=== PATIENT | female | born 1955 | race Caucasian/White ===

== ENCOUNTER 2019-03-03 09:17 | Day surgery (SDC) | payer BC, SELFPAY ==
[2019-02-17 13:11] VITALS: BMI 34.9
--- NOTE | 2019-02-27 12:14 | HP_ITS ---
Intake Vital Signs 02/17/19 Body Mass Index (BMI) 34.9 02/17/19 Height 5 ft 6.5 in 02/17/19 Weight: 233 lb 02/17/19 Body Mass Index (BMI) 37.0 02/17/19 Blood Pressure 152/84 H 02/17/19 Blood Pressure Location Rt brachial 02/17/19 Blood Pressure Position Sitting 02/17/19 Respiratory Rate 16 Intake Visit Reasons: C-SCOPE/EGD CONSULT Overcoiler Required: No Is patient in pain?: No Allergies ranitidine Allergy (Mild, Verified 02/17/19 13:09) Other adhesive Allergy (Verified 02/17/19 13:08) Rash Medications Calcium Carbonate/Vitamin D3 [Calcium 600 + Vit D3 Caplet] 1 ea PO DAILY 01/22/17 [History Confirmed 02/17/19] Fluticasone 0.05% [Flonase Nasal [place]] 1 spray NASAL DAILY 01/22/17 [History Confirmed 02/17/19] Omeprazole [Prilosec] 20 mg PO DAILY 01/22/17 [History Confirmed 02/17/19] fluticasone propionate 50 mcg/actuation nasal spray,suspension 1 spray INTRANASAL DAILY 02/17/19 [History Confirmed 02/17/19] PFSH Medical History Allergies (Acute) Bartholin cyst (Acute) GERD (gastroesophageal reflux disease) (Acute) Surgical History Cyst of Bartholin's gland (Acute) S/P laparoscopic cholecystectomy (Acute) S/P wisdom tooth extraction (Acute) Family History Mother Heart disease Hypertension CAD (coronary artery disease) CVA (cerebral vascular accident) Grandmother Breast cancer Diabetes Father Heart disease Social History (Updated 02/27/19 @ 12:14 by Paramjit Wesley MD) Smoking Status: Former smoker alcohol intake: current alcohol intake frequency: a few times a week HPI HPI HPI: GHANSHYAM NANCE, is a 63 F who presents to the office today for HPI HPI Surgical H&P: Yes HPI: GHANSHYAM NANCE, is a 63 F who presents to the office today for Evaluation for endoscopy. Patient has been having some epigastric discomfort and some chest discomfort she has a known history of GERD but she is never had an EGD. She is not experiencing any vomiting but she has been experiencing some nausea. In addition she has had some left-sided pain and is actually due for a screening colonoscopy. She does have a mother with a history of ulcerative colitis. ROS General General: No weight change, appetite, fatigue, colon cancer, breast cancer or weakness HEENT HEENT: No difficulty swallowing, eye injury, eye surgery, swollen glands or hoarseness Endo Endocrine: No thyroid disease, diabetes mellitus, thyroid cancer, Hair loss, heat intolerance or cold intolerance Skin Skin: No rash or changing moles Breast Breast: No left breast lump, right breast lump, nipple discharge, breast pain, abnormal mammogram, abnormal US or breast enlargement Musc Musculoskeletal: Yes back problems and arthritis; no rheumatoid arthritis, gout or joint pain Cardio Cardiovascular: No murmur, pacemaker, heart disease, atrial fibrillation, high blood pressure, heart attack, heart stent, palpitations, shortness of breat with exertion or chest pain Psych Psychiatric: No depression, anxiety or hearing voices Resp Respiratory: No shortness of breath, Yes sleep apnea, No cough, No COPD, No asthma, No emphysema, No wheezing Gastro Gastrointestinal: Yes abdominal pain, No nausea or vomiting, Yes diarrhea, No constipation, No blood in stool, Yes acid reflux, No hemorrhoids, No ulcers, No gallbladder problem, No black,tarry stools Fernando Hematologic: No blood thinners, No blood disorders, No bleeding, No anemia, No blood clots Neuro Neurologic: No system reviewed and no additional complaints, except as docu, No as per HPI, No abnormal walking, No abnormal hearing, No abnormal movements, No abnormal speech, No behavioral changes, No burning sensations, No confusion, No seizure-like activity, No unsteadiness, No dizziness, No localized weakness, No frequent falls, No headache(s), No lack of coordination, No loss of vision, No memory loss, No numbness, No other visual disturbances, No radiating pain, No restless legs, No sensory deficit, No fainting, No tingling, No tremor(s), No weakness, No other Exam Const General: no acute distress, well developed, well hydrated Orientation: oriented to person, oriented to place, oriented to time [facility] Head: normocephalic, atraumatic Ears: external ears normal Mouth: moist mucous membranes Eyes Sclera: sclerae normal Pupils: normal by confrontation Neck Neck: no lymphadenopathy noted Neck mass: No Thyroid: thyroid normal, symmetrical Chest Chest palpation & inspection: normal inspection of the chest Breast Palpation: No nipple discharge Resp Effort & Inspection: normal respiratory effort Auscultation: clear to auscultation bilaterally Percussion: percussion normal Cardio Rate: regular rate Rhythm: regular rhythm Heart Sounds: no murmurs GI Palpation: soft, no hepatosplenomegaly, no masses, nontender Rectal Exam: other Other: Rectal exam deferred. Extrem General: normal to inspection, no clubbing, cyanosis or edema Assessment & Plan Problems 1. Gastroesophageal reflux disease, esophagitis presence not specified K21.9 2. Epigastric pain R10.13 3. Encounter for screening colonoscopy Z. Plan I have discussed the above with the patient. I have offered the patient colonoscopy As well as an EGD for evaluation. I have explained the risks/benefits of the procedure and described the procedure. I have discussed the risks with the patient, including but not limited to: infection, bleeding, perforation of the GI tract requiring emergency surgery, inability to complete the procedure, injury to any internal organs, complications of anesthesia, etc. - the patient understands and agrees to proceed. I have answered all the patient's questions to the patient's satisfaction and the patient has no further questions. The patient has been given instructions for the colon cleansing preparation. Coding Level of Care Code Off vis,new,level 3 Diagnoses Gastroesophageal reflux disease, esophagitis presence not specified K21.9 ??Esophagitis presence: esophagitis presence not specified Epigastric pain R10.13 Encounter for screening colonoscopy Z.02/27/19 1214 <Electronically signed by Paramjit sotelo MD> Date _ Paramjit Wesley MD I have re-examined the patient. There are no clinical changes since date of exam.
[2019-03-03 09:53] VITALS: BP 153/98; PULSE 76; RESP 16; TEMP 36.7; O2SAT 96; BMI 37.2
[2019-03-03] MEDS: Lactated Ringers 1,000 ML 100 ML IV (10:02)
--- NOTE | 2019-03-03 10:55 | EGD_PTH ---
PATIENT: GHANSHYAM NANCE LOC: EN U#:[id number] AGE/SX: 63/F ROOM: RE03/03/[address]: Dr. Paramjit Wesley MD : 1955 BED: DIS: 03/03/2019 SPEC #: [id number] RECD: 03/03/19 11:37 STATUS: SHAYY REAlisson #: [id number] LAURENCE: 03/03/19 10:[address]: Paramjit Wesley DEPT: SURGICAL PATHOLOGY RECD BY: Martinez Martinez ENTERED: 03/03/19 13:34 SP TYPE: EGD BIOPSY OTHR DR: Meg Bauer PA-C Tissues: A - Gastric mucous membrane B - Stomach, NOS Procedures: Surgery Specimen Level IV HEADER OPERATION: Colonoscopy, EGD ([facility]) PRE-OP DIAGNOSIS: GERD, epigastric pain, screening TISSUE SUBMITTED: A - Antrum biopsy for H. pylori and path, B - Fundic polyp biopsy MICROSCOPIC DIAGNOSIS A. Antrum, biopsy: A fragment of gastric mucosa with minimal chronic inflammation and congestion. B. Fundic polyp, biopsy: Consistent with fundic gland polyp. JUANCHO:laura 03/04/19 COMMENT A. The results of immunohistochemistry for Helicobacter pylori will be reported separately ([id number]). MICROSCOPIC DESCRIPTION Slides are reviewed. GROSS DESCRIPTION A - Received in fixative is one container labeled with the patient's name and designated antrum biopsy. The specimen consists of one irregular fragment of light urias soft tissue that measures 0.7 x 0.3 x 0.1 cm. The specimen is totally submitted in one cassette. B - Received in fixative is one container labeled with the patient's name and designated fundic polyp biopsy. The specimen consists of one irregular fragment of light urias soft tissue that measures 0.3 x 0.3 x 0.1 cm. The specimen is totally submitted in one cassette. / JUANCHO:laura 03/03/19 TC:5 CPT: 77621 x2
--- NOTE | 2019-03-03 10:55 | IMM_PTH ---
PATIENT: GHANSHYAM NANCE LOC: EN U#:[id number] AGE/SX: 63/F ROOM: RE03/03/[address]: Dr. Paramjit Wesley MD : 1955 BED: DIS: 03/03/2019 SPEC #: [id number] RECD: 03/03/19 15:25 STATUS: SHAYY REQ #: [id number] LAURENCE: 03/03/19 10:[address]: Paramjit Wesley DEPT: IMMUNOHISTOCHEMISTRY RECD BY: Chari Osorio ENTERED: 03/03/19 15:25 SP TYPE: IMMUNO OTHR DR: Meg Bauer PA-C Tissues: A - Stomach, NOS Procedures: H Pylori (initial) PHYSICIAN & INSTITUTION [place] [id number] SPECIMEN INFORMATION: Tissue Source: A - Antrum biopsy Clinical Info: GERD, epigastric pain, screening Specimen Number: [id number] CPT code: 77512 METHODOLOGY: Deparaffinized sections of prefer/formalin-fixed tissue or PAP/DQ stained slides are incubated with monoclonal/polyclonal antibodies/oligonucleotide probes. Localization is made via biotin free immunoperoxidase method. Appropriate controls are performed and reacted as expected. Results on target cell population are indicated in the following table: RESULTS: ANTIBODY / CLONE RESULT Block A H Pylori (polyclonal) negative These tests were developed and their performance characteristics determined by [facility]. They may not have been cleared or approved by the U.S. Food and Drug Administration. The FDA has determined that such clearance or approval is not necessary. INTERPRETATION: A. Antrum biopsy: Negative for Helicobacter pylori organisms. SJ:laura 03/04/19
[2019-03-03 11:15] VITALS: BP 103/57; PULSE 61; RESP 16; TEMP 36.4; O2SAT 95
--- NOTE | 2019-03-03 11:18 | OP.EGD_ITS ---
Patient Name: Marylou Santos Procedure Date: 03/03/2019 10:45 AM Date of : 1955 Age: 63 Procedure: Upper GI endoscopy Indications: Epigastric abdominal pain, Suspected gastro-esophageal reflux disease Providers: Paramjit Wesley MD Referring MD: Meg Bauer Medicines: See the Anesthesia note for documentation of the administered medications Patient Profile: This is a 63 year old female. Refer to note in patient chart for documentation of history and physical. Complications: No immediate complications. Procedure: Pre-Anesthesia Assessment: - Prior to the procedure, a History and Physical was performed, and patient medications and allergies were reviewed. The patient's tolerance of previous anesthesia was also reviewed. The risks and benefits of the procedure and the sedation options and risks were discussed with the patient. All questions were answered, and informed consent was obtained. Prior Anticoagulants: The patient has taken no previous anticoagulant or antiplatelet agents. ASA Grade Assessment: II - A patient with mild systemic disease. After reviewing the risks and benefits, the patient was deemed in satisfactory condition to undergo the procedure. After obtaining informed consent, the endoscope was passed under direct vision. Throughout the procedure, the patient's blood pressure, pulse, and oxygen saturations were monitored continuously. The gastroscope was introduced through the mouth, and advanced to the second part of duodenum. The upper GI endoscopy was accomplished without difficulty. The patient tolerated the procedure well. Scope In: 10:54:12 AM Scope Out: 10:57:50 AM Total Procedure Duration Time 0 hours 3 minutes 38 seconds Findings: The examined esophagus was normal. Localized minimal inflammation characterized by erythema was found in the prepyloric region of the stomach. Biopsies were taken with a cold forceps for Helicobacter pylori testing. The examined duodenum was normal. No biopsies or other specimens were collected for this exam. Multiple 2 to 9 mm sessile polyps with bleeding and no stigmata of recent bleeding were found on the greater curvature of the stomach. Biopsies were taken with a cold forceps for histology. A small non-obstructing mucosal nodule was found in the subglottic space. No biopsies or other specimens were collected for this exam. This lesion look like a capillary hemangioma but I am going to recommend that she follow-up with her ear nose and throat physician and take these photographs with her Impression: - Normal esophagus. - Gastritis. Biopsied. - Normal examined duodenum. No specimens collected. Recommendation: - Discharge patient to home. - Resume previous diet. - Continue present medications. - Await pathology results. - Repeat upper endoscopy (date not yet determined) for surveillance. - Return to physician general office assistant in 1 week. Procedure Code(s): --- Professional --- 25188, Esophagogastroduodenoscopy, flexible, transoral; with biopsy, single or multiple Diagnosis Code(s): --- Professional --- K29.70, Gastritis, unspecified, without bleeding R10.13, Epigastric pain CPT copyright 2017 [employer]. All rights reserved. The codes documented in this report are preliminary and upon clinic lead review may be revised to meet current compliance requirements. MD Paramjit Irwin MD 03/03/2019 11:17:57 AM This report has been signed electronically. Number of Addenda: 0 Note Initiated On: 03/03/2019 10:45 AM
[2019-03-03 11:20] VITALS: BP 153/98; BP 97/54; PULSE 60; RESP 16; O2SAT 93
--- NOTE | 2019-03-03 11:21 | OP.COLON_ITS ---
Patient Name: Marylou Santos Procedure Date: 03/03/2019 10:58 AM Date of : 1955 Age: 63 Procedure: Colonoscopy Indications: Screening for colorectal malignant neoplasm Providers: Paramjit Wesley MD Referring MD: Meg Bauer Medicines: See the Anesthesia note for documentation of the administered medications Patient Profile: This is a 63 year old female. Refer to note in patient chart for documentation of history and physical. Last Colonoscopy: more than 10 years ago. Complications: No immediate complications. Procedure: Pre-Anesthesia Assessment: - Prior to the procedure, a History and Physical was performed, and patient medications and allergies were reviewed. The patient's tolerance of previous anesthesia was also reviewed. The risks and benefits of the procedure and the sedation options and risks were discussed with the patient. All questions were answered, and informed consent was obtained. Prior Anticoagulants: The patient has taken no previous anticoagulant or antiplatelet agents. ASA Grade Assessment: II - A patient with mild systemic disease. After reviewing the risks and benefits, the patient was deemed in satisfactory condition to undergo the procedure. - Prior to the procedure, a History and Physical was performed, and patient medications and allergies were reviewed. The patient's tolerance of previous anesthesia was also reviewed. The risks and benefits of the procedure and the sedation options and risks were discussed with the patient. All questions were answered, and informed consent was obtained. Prior Anticoagulants: The patient has taken no previous anticoagulant or antiplatelet agents. ASA Grade Assessment: II - A patient with mild systemic disease. After reviewing the risks and benefits, the patient was deemed in satisfactory condition to undergo the procedure. After I obtained informed consent, the scope was passed under direct vision. Throughout the procedure, the patient's blood pressure, pulse, and oxygen saturations were monitored continuously. The colonoscope was introduced through the anus and advanced to the cecum, identified by appendiceal orifice and ileocecal valve. The colonoscopy was performed without difficulty. The patient tolerated the procedure well. The quality of the bowel preparation was good. Scope In: 10:59:56 AM Scope Withdrawal Time 0 hours 6 minutes 22 seconds Scope Out: 11:10:09 AM Total Procedure Duration Time 0 hours 10 minutes 13 seconds Findings: Non-bleeding internal hemorrhoids were found during retroflexion. The hemorrhoids were mild and small. The exam was otherwise without abnormality. Impression: - Non-bleeding internal hemorrhoids. - The examination was otherwise normal. - No specimens collected. Recommendation: - Discharge patient to home. - Resume previous diet. - Continue present medications. - Repeat colonoscopy in 10 years for screening purposes. - Return to primary care physician in 1 week. Procedure Code(s): --- Professional --- 60128, Colonoscopy, flexible; diagnostic, including collection of specimen(s) by brushing or washing, when performed (separate procedure) Diagnosis Code(s): --- Professional --- Z12.11, Encounter for screening for malignant neoplasm of colon K64.8, Other hemorrhoids CPT copyright 2017 [employer]. All rights reserved. The codes documented in this report are preliminary and upon diploma maker review may be revised to meet current compliance requirements. MD Paramjit Irwin MD 03/03/2019 11:20:41 AM This report has been signed electronically. Number of Addenda: 0 Note Initiated On: 03/03/2019 10:58 AM
[2019-03-03 11:25] VITALS: BP 118/61; BP 153/98; PULSE 63; RESP 16; O2SAT 95
[2019-03-03 11:30] VITALS: BP 124/76; BP 153/98; PULSE 57; RESP 16; TEMP 36.5; O2SAT 95
[2019-03-03 11:50] VITALS: BP 153/98
== END 2019-03-03 12:13 | disposition home or self-care (01) ==
LOC: EN 09:18 → AC 09:22
PROVIDERS: Family Provider Family Medicine; PCP Family Medicine; Referring Provider Family Medicine; Visit Provider Surgery
PROC: 0DJD8ZZ Inspection of Lower Intestinal Tract, Via Natural or Artificial Opening Endoscopic (ICD-10-PCS; CPT 45378; principal; 2019-03-03 10:50)
DX: Z12.11 Encounter for screening for malignant neoplasm of colon (principal); K31.7 Polyp of stomach and duodenum; K29.50 Unspecified chronic gastritis without bleeding; K92.89 Other specified diseases of the digestive system; K64.8 Other hemorrhoids; K21.9 Gastro-esophageal reflux disease without esophagitis; Z87.891 Personal history of nicotine dependence; Z79.899 Other long term (current) drug therapy
CPT/HCPCS: 43239; 45378; 88305; 88342; J7120; J1610; J2405

== ENCOUNTER 2019-04-02 05:41 | Day surgery (SDC) | payer BC, SELFPAY ==
--- NOTE | 2019-02-27 12:14 | HP_ITS ---
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 Is patient in pain?: No Allergies ranitidine Allergy (Mild, Verified 02/17/19 13:09) Other adhesive Allergy (Verified 02/17/19 13:08) Rash Medications Calcium Carbonate/Vitamin D3 [Calcium 600 + Vit D3 Caplet] 1 ea PO DAILY 01/22/17 [History Confirmed 02/17/19] Fluticasone 0.05% [Flonase Nasal [place]] 1 spray NASAL DAILY 01/22/17 [History Confirmed 02/17/19] Omeprazole [Prilosec] 20 mg PO DAILY 01/22/17 [History Confirmed 02/17/19] fluticasone propionate 50 mcg/actuation nasal spray,suspension 1 spray INTRANASAL DAILY 02/17/19 [History Confirmed 02/17/19] PFSH Medical History Allergies (Acute) Bartholin cyst (Acute) GERD (gastroesophageal reflux disease) (Acute) Surgical History Cyst of Bartholin's gland (Acute) S/P laparoscopic cholecystectomy (Acute) S/P wisdom tooth extraction (Acute) Family History Mother Heart disease Hypertension CAD (coronary artery disease) CVA (cerebral vascular accident) Grandmother Breast cancer Diabetes Father Heart disease Social History (Updated 02/27/19 @ 12:14 by Paramjit Wesley MD) Smoking Status: Former smoker alcohol intake: current alcohol intake frequency: a few times a week HPI HPI HPI: GHANSHYAM NANCE, is a 63 F who presents to the office today for HPI HPI Surgical H&P: Yes HPI: GHANSHYAM NANCE, is a 63 F who presents to the office today for Evaluation for endoscopy. Patient has been having some epigastric discomfort and some chest discomfort she has a known history of GERD but she is never had an EGD. She is not experiencing any vomiting but she has been experiencing some nausea. In addition she has had some left-sided pain and is actually due for a screening colonoscopy. She does have a mother with a history of ulcerative colitis. ROS General General: No weight change, appetite, fatigue, colon cancer, breast cancer or weakness HEENT HEENT: No difficulty swallowing, eye injury, eye surgery, swollen glands or hoarseness Endo Endocrine: No thyroid disease, diabetes mellitus, thyroid cancer, Hair loss, heat intolerance or cold intolerance Skin Skin: No rash or changing moles Breast Breast: No left breast lump, right breast lump, nipple discharge, breast pain, abnormal mammogram, abnormal US or breast enlargement Musc Musculoskeletal: Yes back problems and arthritis; no rheumatoid arthritis, gout or joint pain Cardio Cardiovascular: No murmur, pacemaker, heart disease, atrial fibrillation, high blood pressure, heart attack, heart stent, palpitations, shortness of breat with exertion or chest pain Psych Psychiatric: No depression, anxiety or hearing voices Resp Respiratory: No shortness of breath, Yes sleep apnea, No cough, No COPD, No asthma, No emphysema, No wheezing Gastro Gastrointestinal: Yes abdominal pain, No nausea or vomiting, Yes diarrhea, No constipation, No blood in stool, Yes acid reflux, No hemorrhoids, No ulcers, No gallbladder problem, No black,tarry stools Fernando Hematologic: No blood thinners, No blood disorders, No bleeding, No anemia, No blood clots Neuro Neurologic: No system reviewed and no additional complaints, except as docu, No as per HPI, No abnormal walking, No abnormal hearing, No abnormal movements, No abnormal speech, No behavioral changes, No burning sensations, No confusion, No seizure-like activity, No unsteadiness, No dizziness, No localized weakness, No frequent falls, No headache(s), No lack of coordination, No loss of vision, No memory loss, No numbness, No other visual disturbances, No radiating pain, No restless legs, No sensory deficit, No fainting, No tingling, No tremor(s), No weakness, No other Exam Const General: no acute distress, well developed, well hydrated Orientation: oriented to person, oriented to place, oriented to time [facility] Head: normocephalic, atraumatic Ears: external ears normal Mouth: moist mucous membranes Eyes Sclera: sclerae normal Pupils: normal by confrontation Neck Neck: no lymphadenopathy noted Neck mass: No Thyroid: thyroid normal, symmetrical Chest Chest palpation & inspection: normal inspection of the chest Breast Palpation: No nipple discharge Resp Effort & Inspection: normal respiratory effort Auscultation: clear to auscultation bilaterally Percussion: percussion normal Cardio Rate: regular rate Rhythm: regular rhythm Heart Sounds: no murmurs GI Palpation: soft, no hepatosplenomegaly, no masses, nontender Rectal Exam: other Other: Rectal exam deferred. Extrem General: normal to inspection, no clubbing, cyanosis or edema Assessment & Plan Problems 1. Gastroesophageal reflux disease, esophagitis presence not specified K21.9 2. Epigastric pain R10.13 3. Encounter for screening colonoscopy Z. Plan I have discussed the above with the patient. I have offered the patient colonoscopy As well as an EGD for evaluation. I have explained the risks/benefits of the procedure and described the procedure. I have discussed the risks with the patient, including but not limited to: infection, bleeding, perforation of the GI tract requiring emergency surgery, inability to complete the procedure, injury to any internal organs, complications of anesthesia, etc. - the patient understands and agrees to proceed. I have answered all the patient's questions to the patient's satisfaction and the patient has no further questions. The patient has been given instructions for the colon cleansing preparation. Coding Level of Care Code Off vis,new,level 3 Diagnoses Gastroesophageal reflux disease, esophagitis presence not specified K21.9 ??Esophagitis presence: esophagitis presence not specified Epigastric pain R10.13 Encounter for screening colonoscopy Z.02/27/19 1214 <Electronically signed by Paramjit sotelo MD> Date _ Paramjit Wesley MD
--- NOTE | 2019-04-02 | LES_PTH ---
PATIENT: GHANSHYAM NANCE LOC: [facility] U#:[id number] AGE/SX: 63/F ROOM: RE04/02/[address]: Dr. Dayton Covington MD : 1955 BED: DIS: 04/02/2019 SPEC #: [id number] RECD: 04/02/19 07:54 STATUS: SHAYY NIKOLAI #: [id number] LAURENCE: 04/02/19 00:[address]: Dayton Covington DEPT: SURGICAL PATHOLOGY RECD BY: Chari Osorio ENTERED: 04/02/19 09:02 SP TYPE: Lesion OTHR DR: Meg Bauer PA-C Tissues: Larynx, NOS Procedures: Frozen Section (charge) Surgery Specimen Level IV HEADER OPERATION: Direct microscopic laryngoscopy with biopsy PRE-OP DIAGNOSIS: Benign neoplasm of right arytenoid TISSUE SUBMITTED: Mucosal lesion of right arytenoid sent at 0747 FROZEN SECTION DIAGNOSIS Mucosal lesion, right arytenoid, biopsy: Negative for malignancy. JUANCHO:laura 04/02/19 MICROSCOPIC DIAGNOSIS Right arytenoid mucosal lesion, biopsy: Benign mucosal polyp. JUANCHO:laura 04/05/19 MICROSCOPIC DESCRIPTION Slides are reviewed. GROSS DESCRIPTION Received fresh for frozen section diagnosis labeled with the patient's name is a specimen designated mucosal lesion of right arytenoid. The specimen consists of a piece of urias soft tissue measuring 0.5 x 0.2 x 0.1 cm. The specimen is totally submitted in one cassette. / JUANCHO:laura 04/02/19 TC:1 CPT: 62463
--- NOTE | 2019-04-02 05:48 | EKG12_ITS ---
Test Reason : PRE-OP Blood Pressure : / mmHG Vent. Rate : 069 BPM Atrial Rate : 069 BPM P-R Int : 138 ms QRS Dur : 082 ms QT Int : 396 ms P-R-T Axes : -16 -04 006 degrees QTc Int : 424 ms Normal sinus rhythm Normal ECG When compared with ECG of 24-JAN-2017 11:29, No significant change was found Confirmed by ROSALINO WILSON, MCKENZIE ([id number]), department editor MEHNAZ MUNGUIA ([id number]) on 04/06/2019 9:24:39 AM Referred By: Dayton Covington Confirmed By:MCKENZIE JERRY MD
[2019-04-02 06:08] VITALS: BP 167/90; PULSE 72; RESP 16; TEMP 36.6; O2SAT 95; BMI 36.4
[2019-04-02] MEDS: Lactated Ringers 1,000 ML 100 ML IV (06:38)
[2019-04-02 07:35] LABS: Anion Gap 5 (5-15); BUN 8 mg/dL (7-18); BUN/Creat Ratio 11.2 RATIO (10-20); Calcium,Total 8.5 mg/dL (8.5-10.1); Chloride 112 mmol/L (98-107); Creatinine, Serum 0.71 mg/dL (0.55-1.02); EST Glomerular Filtration Rate 87 mL/min (>60); Est Glom Filt Rate - Afr Amer 106 mL/min (>60); Estimated Creatinine Clearance 74.94 ml/min; Glucose 103 mg/dL (74-106); Potassium 3.5 mmol/L (3.5-5.1); Sodium Level 142 mmol/L (136-145)
[2019-04-02] MEDS: Lidocaine 4% 50 ML Bottle (07:40)
[2019-04-02] MEDS: Oxymetazoline 0.05% 1 SPRAY SPRAY.BTL 15 SPRAY (07:40)
--- NOTE | 2019-04-02 08:11 | PCM.OPRPT ---
Problem List (1) Benign neoplasm of larynx Status: Acute Report of Operation Date of Procedure: 04/02/19 Pre-Operative Diagnosis: Right arytenoid lesion Post-Operative Diagnosis: Same Surgery/Procedure Performed:: Direct microlaryngoscopy with biopsy of right arytenoid lesion Description of Surgical Findings:: Yamilet is a 63-year-old female who recently got undergone upper endoscopy and was found to have a lesion of the right arytenoid mucosa. Office evaluation again demonstrated a purplish bluish raised lesion of the mucosa along the right arytenoid of the larynx of uncertain significance and biopsy was advised. The risks, alternatives, potential complications, and benefits were discussed at length and any questions answered to the patient and/or caregiver's satisfaction. Witnessed informed consent was obtained in the office, and the patient and/or caregiver was agreeable to proceed. Procedure went as follows: The patient was identified in the preoperative holding and brought to the operating room, placed under general anesthesia, and intubated. When appropriate anesthesia was obtained, the head of bed was rotated and the patient prepped and draped in usual sterile fashion. A dental guard was then placed to protect the upper gums and the Dedo laryngoscope then introduced. Direct laryngoscopy was then carried out. The lateral posterior pharyngeal wall mucosa, tonsillar fossa, vallecula, piriforms, and epiglottis were noted to be normal in appearance. The true and false vocal folds were then brought into view. The patient was then placed in suspension and the operative microscope brought into the field. Using pledgets soaked in a 50-50 mixture of oxymetazoline and 4% topical lidocaine the true vocal folds were then topicalized over the visible lesion of the right arytenoid. Using a microlaryngeal cup forceps this lesion was then grasped and evulsed and sent for pathologic evaluation. Frozen section evaluation showed a benign lesion without evidence of malignancy. The biopsy site was noted to have a fair amount of bleeding and this was controlled with suction electrocautery and topical oxymetazoline soaked pledgets. Once hemostasis was achieved the pledgets were then removed and the patient taken out of suspension and returned to anesthesia, was revived, and extubated without complication having tolerated the procedure well. Type of Anesthesia:: General Anesthesiologist: Elliott Rocha Special Medications: none Specimen's removed: right arytenoid lesion Drains: none Estimated Blood Loss (mL): 5 mL Fluids Replaced: 800 mL Grafts/Implants Used: none - Complications none - Admit VTE Documentation VTE Present on Admission: No VTE Mechan Device Prophylaxis: SCD's VTE Pharm Prophylaxis ordered?: No
--- NOTE | 2019-04-02 08:17 | DCINST_ITS ---
- Discharge Diagnoses Current Active Problems: Current Active and Chronic Problems (Last Reviewed 02/27/19 @ 12:12 by Paramjit Wesley MD) Benign neoplasm of larynx (Acute) You will use the following diet at home:: Regular Discharge Activity: Return to Normal Activity Call your doctor if your incision/area has: Sudden Increased Bleeding Call your doctor if you observe: Fever of 101 or Higher, Uncontrolled pain Allergies/Adverse Reactions: Allergies ranitidine Allergy (Mild, Verified 04/02/19 06:06) Other bruising adhesive Allergy (Verified 04/02/19 06:06) Rash Medications to take at Discharge Fluticasone 0.05% [Flonase Nasal [place]] 1 spray NASAL DAILY PRN 01/22/17 Omeprazole [Prilosec] 40 mg PO DAILY 01/22/17 Cholecalciferol (Vitamin D3) [Vitamin D3] 400 unit PO DAILY 03/02/19 Gluc Wagner/Chondro Wagner A/Vit C/Mn [Glucosamine Chondroitin Tab] 1 ea PO DAILY 03/02/19 Loratadine [Claritin] 10 mg PO DAILY 03/02/19 Multivitamin with Minerals [Multiple Vitamin] 1 ea PO DAILY 03/02/19 Primary Care Physician: Meg Bauer PA-C [Primary Care Provider] - Test Results: Test results from this visit will be discussed in further detail at your follow- up appointment, if applicable. Please Follow Up With: Dayton Covington MD When: 2 weeks
[2019-04-02 08:25] VITALS: BP 126/75; BP 167/90; PULSE 77; RESP 16; TEMP 36.5; O2SAT 92
[2019-04-02 08:30] VITALS: BP 128/72; BP 167/90; PULSE 72; RESP 16; O2SAT 92
[2019-04-02 08:35] VITALS: BP 127/77; BP 167/90; PULSE 66; RESP 16; O2SAT 94
[2019-04-02 08:40] VITALS: BP 130/75; BP 136/68; BP 167/90; PULSE 60; PULSE 61; RESP 16; TEMP 36.3; O2SAT 95
[2019-04-02 10:05] VITALS: BP 140/77; BP 167/90; PULSE 54; RESP 16; TEMP 36.6; O2SAT 95
== END 2019-04-02 10:10 | disposition home or self-care (01) ==
LOC: SDC 05:45 → AC 05:46
PROVIDERS: Family Provider Family Medicine; PCP Family Medicine; Referring Provider Otolaryngology; Visit Provider Otolaryngology
PROC: 0CJS8ZZ Inspection of Larynx, Via Natural or Artificial Opening Endoscopic (ICD-10-PCS; CPT 31575; principal; 2019-04-02 07:25)
DX: D14.1 Benign neoplasm of larynx (principal); K21.9 Gastro-esophageal reflux disease without esophagitis; Z79.899 Other long term (current) drug therapy; Z87.891 Personal history of nicotine dependence; R10.13 Epigastric pain; G47.30 Sleep apnea, unspecified
CPT/HCPCS: 31536; 36415; 80048; 88305; 88307; 88331; 93005; J7120; J2405

== ENCOUNTER 2021-05-30 09:44 | Outpatient (CLI) | payer MEDICARE, BC, SELFPAY | END 2021-05-30 23:59 | disposition home or self-care (01) | PROVIDERS: PCP Physician Assistant; Referring Provider Physician Assistant Medical; Visit Provider Physician Assistant Medical | DX: I10 Essential (primary) hypertension (principal) | CPT/HCPCS: 93788 ==

== ENCOUNTER 2021-06-22 06:13 | Day surgery (SDC) | payer MEDICARE, BC, SELFPAY ==
[2021-06-22 06:46] VITALS: BP 134/76; PULSE 65; RESP 16; TEMP 36.6; O2SAT 99; BMI 34.6
[2021-06-22] MEDS: Lactated Ringers 1,000 ML 15 ML IV (06:52)
--- NOTE | 2021-06-22 07:01 | PCM.HP.BLA ---
History and Physical Date of Admission: 06/22/21 Intake Vital Signs 06/11/21 09:07 Height 5 ft 6.5 in Weight: 225 lb 2 oz BMI 35.8 BP 137/81 H Blood Pressure Location Rt brachial Position Sitting Respiration 18 Pulse 66 Pulse Source Monitor Temp 97.3 F L Temp Source Temporal Pulse Oximetry (%) 97 Oxygen Delivery Method room air Intake Visit Reasons: Gastroesophageal reflux disease (GERD) Chief Complaint: GERD Almond Paste Mixer Required: No Accompanied by: Is patient in pain?: No Allergies ranitidine Allergy (Mild, Verified 06/11/21 09:08) Other adhesive Allergy (Verified 06/11/21 09:08) Rash Medications multivitamin with minerals 1 ea PO DAILY 03/02/19 [History Confirmed 06/11/21] alprazolam 0.25 mg tablet 0.25 mg PO TID PRN tab 09/20/20 [History Confirmed 06/11/21] cholecalciferol (vitamin D3) 50 mcg (2,000 unit) tablet 50 mcg PO DAILY 09/20/20 [History Confirmed 06/11/21] lactase 3,000 unit tablet 3,000 unit PO ONCE PRN 09/20/20 [History Confirmed 06/11/21] lisinopril 30 mg tablet 30 mg PO DAILY 04/25/21 [History Confirmed 06/11/21] metoprolol succinate 50 mg tablet,extended release 24 hr 25 mg PO DAILY #90 tab 04/25/21 [Rx Confirmed 06/11/21] estradiol 1 appful VAGINAL .3 times per week g 06/11/21 [History Confirmed 06/11/21] loratadine 10 mg capsule 10 mg PO DAILY PRN 06/11/21 [History Confirmed 06/11/21] pantoprazole 40 mg granules delayed-release for susp in packet 40 mg PO DAILY 06/11/21 [History Confirmed 06/11/21] PFS Medical History Allergies Anxiety Atrial fibrillation with rapid ventricular response (07/06/20) Bartholin cyst Benign neoplasm of larynx Essential hypertension GERD (gastroesophageal reflux disease) IBS (irritable bowel syndrome) ROSA (obstructive sleep apnea) Osteopenia Surgical History Cyst of Bartholin's gland History of cholecystectomy History of colonoscopy (02/2019) History of esophagogastroduodenoscopy (EGD) (02/2019) S/P wisdom tooth extraction Family History Mother Heart disease valvular heart disease Hypertension CAD (coronary artery disease) CVA (cerebral vascular accident) Grandmother Breast cancer Diabetes Father Heart disease Brother CAD (coronary artery disease), Onset Age: 64 CABG Heart disease Hypertension Sister Heart disease afib Brother Hypertension Grandfather CVA (cerebral vascular accident) Social History Smoking Status: Former smoker how long ago did patient quit smokin alcohol intake: current alcohol intake frequency: a few times a week caffeine: Yes Type: coffee Number of servings: 2 HPI HPI HPI: GHANSHYAM NANCE, is a 65 F who presents to the office today for GERD. The patient has been on 2 different PPIs and reports persistent reflux. The patient reports this has been going on for years. She had EGD and colonoscopy in 2019. ROS General General: No weight change, appetite, fatigue, colon cancer, breast cancer or weakness HEENT HEENT: No difficulty swallowing, eye injury, eye surgery, swollen glands or hoarseness Endo Endocrine: No thyroid disease, diabetes mellitus, thyroid cancer, Hair loss, heat intolerance or cold intolerance Skin Skin: No rash or changing moles Breast Breast: No left breast lump, right breast lump, nipple discharge, breast pain, abnormal mammogram, abnormal US or breast enlargement Musc Musculoskeletal: Yes back problems and arthritis; No rheumatoid arthritis, gout or joint pain Cardio Cardiovascular: Yes high blood pressure; No murmur, pacemaker, heart disease, atrial fibrillation, heart attack, heart stent, palpitations, shortness of breat with exertion or chest pain Psych Psychiatric: Yes anxiety; No depression or hearing voices Resp Respiratory: No shortness of breath, Yes sleep apnea, No cough, No COPD, No asthma, No emphysema and No wheezing Gastro Gastrointestinal: Yes abdominal pain, No nausea or vomiting, No diarrhea, No constipation, No blood in stool, Yes acid reflux, No hemorrhoids, No ulcers, No gallbladder problem and No black,tarry stools Fernando Hematologic: No blood thinners, No blood disorders, No bleeding, No anemia and No blood clots Neuro Neurologic: No system reviewed and no additional complaints, except as documented, No as per HPI, No abnormal gait, No abnormal hearing, No abnormal movements, No abnormal speech, No behavioral changes, No burning sensations, No confusion, No convulsions, No disequilibrium, No dizziness, No localized weakness, No frequent falls, No headache(s), No lack of coordination, No loss of vision, No memory loss, No numbness, No other visual disturbances, No radicular pain, No restless legs, No sensory deficit, No syncope, No tingling, No tremor(s), No weakness and No other Exam Const General: cooperative Orientation: alert and oriented x3 HENMT Head: normal to inspection Neck Neck: normal visual inspection and full ROM Chest Chest palpation & inspection: normal inspection of the chest Resp Effort & Inspection: normal respiratory effort Auscultation: clear to auscultation bilaterally Cardio Rate: regular rate Rhythm: regular rhythm GI Inspection: non-distended Palpation: soft and nontender Skin General: no rashes or lesions noted Neuro General: patient alert and patient oriented x3 Extrem General: full ROM Psych Appearance: grossly normal Mental Status: mental status grossly normal Assessment and Plan Assessment and Plan (1) GERD (gastroesophageal reflux disease): Plan - Dr. Naeem Mattson MD: The patient has persistent GERD despite PPI. She had EGD and colonoscopy in 2019. I discussed that weight loss would likely help with her reflux and I did discuss Rhianna fundoplication briefly. I discussed performing EGD with pH probe to both examine the esophagus and to prove that she is having reflux as her symptoms are little asymptomatic and run upper left chest. The patient agrees to proceed. I explained endoscopy in detail to the patient. I explained the risks including but not limited to stroke or heart attack with anesthesia, perforation of the GI tract, bleeding, infection. I explained that any of these could necessitate further emergency surgery. The patient understands and all questions were answered sufficiently. The patient wishes to proceed with procedure. Naeem Mattson MD Pager: [facility] [address] [place] [address], [address] [place] [address] Office: I have re-examined the patient. There are no clinical changes since date of exam.
--- NOTE | 2021-06-22 07:30 | IMM_PTH ---
PATIENT: GHANSHYAM NANCE LOC: EN U#:[id number] AGE/SX: 65/F ROOM: RE06/22/[address]: Dr. Naeem Mattson MD : 1955 BED: DIS: 06/22/2021 SPEC #: [id number] RECD: 06/22/21 12:52 STATUS: SHAYY REQ #: [id number] LAURENCE: 06/22/21 07:[address]: Naeem Mattson DEPT: IMMUNOHISTOCHEMISTRY RECD BY: Chari Osorio ENTERED: 06/22/21 12:53 SP TYPE: IMMUNO OTHR DR: RAFITA Heaton Tissues: Stomach, NOS Procedures: H Pylori (initial) PHYSICIAN & INSTITUTION [place] [id number] SPECIMEN INFORMATION: Tissue Source: Antrum biopsy Clinical Info: GERD Specimen Number: [id number] CPT code: 95929 METHODOLOGY: Deparaffinized sections of prefer/formalin-fixed tissue or PAP/DQ stained slides are incubated with monoclonal/polyclonal antibodies/oligonucleotide probes. Localization is made via biotin free immunoperoxidase method. Appropriate controls are performed and reacted as expected. Results on target cell population are indicated in the following table: RESULTS: ANTIBODY / CLONE RESULT H Pylori (polyclonal) negative These tests were developed and their performance characteristics determined by [facility]. They may not have been cleared or approved by the U.S. Food and Drug Administration. The FDA has determined that such clearance or approval is not necessary. INTERPRETATION: Antrum, biopsy: Negative for Helicobacter pylori organisms. JUANCHO:laura 06/25/2021
--- NOTE | 2021-06-22 07:30 | EGD_PTH ---
PATIENT: GHANSHYAM NANCE LOC: EN U#:[id number] AGE/SX: 65/F ROOM: RE06/22/[address]: Dr. Naeem Mattson MD : 1955 BED: DIS: 06/22/2021 SPEC #: [id number] RECD: 06/22/21 10:07 STATUS: SHAYY MENCHACA #: [id number] LAURENCE: 06/22/21 07:[address]: Naeem Mattson DEPT: SURGICAL PATHOLOGY RECD BY: Idalia Parry ENTERED: 06/22/21 11:01 SP TYPE: EGD BIOPSY OT DR: RAFITA Heaton Tissues: Gastric mucous membrane Procedures: Surgery Specimen Level IV HEADER [place] [place] DIAGNOSIS: GERD TISSUE SUBMITTED: Antrum biopsy for histo and H. pylori MICROSCOPIC DIAGNOSIS Antrum biopsy: Mild gastritis. See microscopic description and comment. SJ:laura 06/25/2021 COMMENT The results of immunohistochemistry for Helicobacter pylori will be reported separately ([id number]). MICROSCOPIC DESCRIPTION Slides are reviewed. The specimen shows fragments of gastric mucosa with chronic inflammatory cell infiltrates in the lamina propria consisting of lymphocytes and plasma cells, consistent with mild chronic gastritis. GROSS DESCRIPTION Received in fixative is one container labeled with the patient's name and designated antrum biopsy. The specimen consists of two irregular fragments of light urias soft tissue that in aggregate measure 0.6 x 0.3 x 0.1 cm. The specimen is totally submitted in one cassette. / SJ:laura 06/22/2021 TC:3 CPT: 93694
[2021-06-22 07:50] VITALS: BP 109/61; BP 134/76; PULSE 58; RESP 16; TEMP 36.1; O2SAT 92
--- NOTE | 2021-06-22 07:54 | OP.CCLET_ITS ---
06/22/2021 Karina Moncada Re : Upper GI endoscopy procedure for Marylou Moncada This procedure was performed on Tuesday, June 22, 2021. My impressions and recommendations are as follows: Impressions : - Normal esophagus. - Normal stomach. - Normal examined duodenum. - Biopsies were taken with a cold forceps for Helicobacter pylori testing. - The GORDON pH capsule was positioned 40 cm from the incisors, which was 6 cm proximal to the GE junction. Recommendations : - Discharge patient to home. - Resume previous diet. - Continue present medications. - Await pathology results. - Return to my office in 1 week. My findings are described in the full procedure note, which is enclosed. If I can be of further assistance, please feel free to contact me at Doctor phone number(s): , Work: . Sincerely, Naeem Mattson MD 06/22/2021 7:54:08 AM This report has been signed electronically.
--- NOTE | 2021-06-22 07:54 | OP.EGD_ITS ---
Patient Name: Marylou Santos Procedure Date: 06/22/2021 7:16 AM Date of : 1955 Age: 65 Procedure: Upper GI endoscopy Indications: Gastro-esophageal reflux disease Providers: Naeem Mattson MD Medicines: Monitored Anesthesia Care Patient Profile: This is a 65 year old female. Refer to note in patient chart for documentation of history and physical. Complications: No immediate complications. Procedure: Pre-Anesthesia Assessment: - Prior to the procedure, a History and Physical was performed, and patient medications and allergies were reviewed. The patient's tolerance of previous anesthesia was also reviewed. The risks and benefits of the procedure and the sedation options and risks were discussed with the patient. All questions were answered, and informed consent was obtained. Prior Anticoagulants: The patient has taken no previous anticoagulant or antiplatelet agents. After reviewing the risks and benefits, the patient was deemed in satisfactory condition to undergo the procedure. After obtaining informed consent, the endoscope was passed under direct vision. Throughout the procedure, the patient's blood pressure, pulse, and oxygen saturations were monitored continuously. The gastroscope was introduced through the mouth, and advanced to the fourth part of duodenum. The upper GI endoscopy was accomplished without difficulty. The patient tolerated the procedure well. Scope In: 7:37:45 AM Scope Out: 7:43:11 AM Total Procedure Duration Time 0 hours 5 minutes 26 seconds Findings: The esophagus was normal. The stomach was normal. The examined duodenum was normal. Biopsies were taken with a cold forceps in the gastric antrum for Helicobacter pylori testing. The GORDON capsule with delivery system was introduced through the mouth and advanced into the esophagus, such that the GORDON pH capsule was positioned 40 cm from the incisors, which was 6 cm proximal to the GE junction. Suction was applied to the well of the GORDON pH capsule to suck in the adjacent mucosa of the esophagus using the external vacuum pump set at a minimum vacuum pressure of 550 mmHg for 30 seconds. The GORDON pH capsule was then deployed by depressing the plunger on top of the handle to advance the locking pin into the mucosa, thereby attaching the capsule to the esophagus. The plunger was then rotated a quarter turn clockwise to release the capsule from the delivery system. The delivery system was then withdrawn. Endoscopy was utilized for probe placement and diagnostic evaluation. The scope was reinserted to evaluate placement of the GORDON capsule. Visualization showed the GORDON capsule to be in an appropriate position. Impression: - Normal esophagus. - Normal stomach. - Normal examined duodenum. - Biopsies were taken with a cold forceps for Helicobacter pylori testing. - The GORDON pH capsule was positioned 40 cm from the incisors, which was 6 cm proximal to the GE junction. Recommendation: - Discharge patient to home. - Resume previous diet. - Continue present medications. - Await pathology results. - Return to my office in 1 week. Procedure Code(s): --- Professional --- 97995, Esophagogastroduodenoscopy, flexible, transoral; with biopsy, single or multiple 42980, Esophagus, gastroesophageal reflux test; with mucosal attached telemetry pH electrode placement, recording, analysis and interpretation Diagnosis Code(s): --- Professional --- K21.9, Gastro-esophageal reflux disease without esophagitis CPT copyright 2017 [employer]. All rights reserved. The codes documented in this report are preliminary and upon lead cook review may be revised to meet current compliance requirements. Naeem Mattson MD 06/22/2021 7:54:08 AM This report has been signed electronically. Number of Addenda: 0 Note Initiated On: 06/22/2021 7:16 AM
[2021-06-22 07:55] VITALS: BP 111/62; BP 134/76; PULSE 54; RESP 16; O2SAT 96
[2021-06-22 08:00] VITALS: BP 113/62; BP 134/76; PULSE 51; RESP 16; O2SAT 97
[2021-06-22 08:05] VITALS: BP 123/83; BP 134/76; PULSE 52; RESP 16; TEMP 36.6; O2SAT 96
[2021-06-22 08:26] VITALS: BP 134/76
== END 2021-06-22 23:59 | disposition home or self-care (01) ==
LOC: EN 06:14 → AC 06:15
PROVIDERS: PCP Physician Assistant; Referring Provider Physician Assistant; Visit Provider Surgery
PROC: 0DJ08ZZ Inspection of Upper Intestinal Tract, Via Natural or Artificial Opening Endoscopic (ICD-10-PCS; CPT 43235; principal; 2021-06-22 07:25)
DX: K29.50 Unspecified chronic gastritis without bleeding (principal); I48.91 Unspecified atrial fibrillation; K21.9 Gastro-esophageal reflux disease without esophagitis; G47.33 Obstructive sleep apnea (adult) (pediatric); F41.9 Anxiety disorder, unspecified; I10 Essential (primary) hypertension; Z87.891 Personal history of nicotine dependence; Z79.899 Other long term (current) drug therapy
CPT/HCPCS: 43239; 88305; 88342; J7120; J2405

== ENCOUNTER 2021-07-05 10:41 | Outpatient (CLI) | payer MEDICARE, BC, SELFPAY ==
--- NOTE | 2021-07-05 10:58 | RAD_ITS ---
STUDY: X-RAY CHEST REASON FOR EXAM: Female, 65 years old. cp TECHNIQUE: PA and lateral views of the chest. COMPARISON: None. FINDINGS: The lungs are clear and expanded. There is no demonstrated pleural abnormality. Normal size heart. Normal mediastinum and tramaine. Normal visualized pulmonary arteries. There is atherosclerotic tortuosity of the aortic arch and descending thoracic aorta. Normal visualized thoracic spine. Normal visualized ribs, clavicles, and shoulders. There is no demonstrated abnormality of the visualized soft tissue structures of the upper abdomen. RAD/Chest PA and Lateral IMPRESSION: No acute cardiopulmonary process. Electronically Signed: Pantera Malin MD ([place]) at 7:38 EDT ,
[2021-07-05 11:25] LABS: Absolute Lymphocyte Count 1.79 X10^3/uL (0.83-4.51); Basophil# 0.07 X10^3/uL; Basophil% 1.1 % (0-1); Eosinophil# 0.05 X10^3/uL; Eosinophils% 0.8 % (0-5); Hematocrit 44.3 % (37-47); Lymphocyte # 1.79 X10^3/ul (0.83-4.51); Lymphocyte % 27.5 % (19-41); Mean Corp Hgb Conc 33.9 g/dL (32-36); Mean Corpuscular Hgb 30.7 pg (27.0-32.0); Mean Corpuscular Volume 90.8 fL (81-99); Mean Platelet Vol. 9.8 fl (6.2-12.0); Monocyte# 0.62 X10^3/uL; Monocyte% 9.5 % (0-10); NRBC Flagged by Analyzer 0 % (0-5); Neutrophil # 3.96 X10^3/uL (2.7-7.7); Neutrophil % 60.6 % (47-70); Platelet Count 249 K/mm3 (150-450); RBC Distribution Width CV 13.3 % (11.6-14.6); RBC Distribution Width SD 44.1 fl (35.1-43.9); Red Blood Count 4.88 M/mm3 (4.2-5.4); White Blood Count 6.5 K/mm3 (4.4-11.0)
[2021-07-05 11:36] LABS: International Normalized Ratio 1.1; Prothrombin Time (Protime)PT. 13.2 SECONDS (11.7-14.9)
[2021-07-05 11:38] LABS: Partial Thromboplast Time 27.2 Seconds (24.1-36.2)
[2021-07-05 11:40] LABS: Anion Gap 3 (5-15); BUN 8 mg/dL (7-18); BUN/Creat Ratio 10.3 RATIO (10-20); Calcium,Total 9.1 mg/dL (8.5-10.1); Chloride 110 mmol/L (98-107); Creatinine, Serum 0.78 mg/dL (0.55-1.02); EST Glomerular Filtration Rate 78 mL/min (>60); Est Glom Filt Rate - Afr Amer 95 mL/min (>60); Glucose 86 mg/dL (74-106); Potassium 3.9 mmol/L (3.5-5.1); Sodium Level 140 mmol/L (136-145)
== END 2021-07-05 23:59 | disposition home or self-care (01) ==
LOC: LAB 10:43
PROVIDERS: PCP Physician Assistant; Referring Provider Physician Assistant Medical; Visit Provider Physician Assistant Medical
DX: R07.9 Chest pain, unspecified (principal); I48.91 Unspecified atrial fibrillation; I10 Essential (primary) hypertension
CPT/HCPCS: 36415; 71046; 80048; 85025; 85610; 85730

== ENCOUNTER 2021-07-09 07:32 | Day surgery (SDC) | payer MEDICARE, BC, SELFPAY ==
[2021-07-06 07:33] VITALS: BMI 35.3
--- NOTE | 2021-07-09 10:21 | CL.D_ITS ---
Patient Name: GHANSHYAM NANCE Study Date: 07/09/2021 Performing: Jose L Valera MD Ht: 66.14 inches 168 cm : 1955 Wt: 218.26 lbs 99 kg Age: 65 Gender: female BSA: 2.08 PROCEDURE(S) PERFORMED DC01-(20297)LHC/COR/LV CLINICAL PROFILE AND INDICATIONS Indications: Suspected CAD Heart Failure: None Stress/Imaging Stress/Image Study Performed: No CAD Presentations: Unstable angina. CONCLUSIONS Normal coronary arteries Normal LV size, wall motion,and systolic function RECOMMENDATIONS Medical therapy DESCRIPTION OF PROCEDURE The patient arrived to the procedure lab. The risks and benefits of the procedure as well as a full d escription of our services here and current unavailability of surgical backup were fully explained to the patient and/or their significant other prior to the catheterization. The Timeout was completed, verifying the correct patient and procedure. The patient's procedural site was prepped and draped in the usual fashion. Local anesthetic was given subcutaneously to right radial region with Lidocaine 2% . Using a modified Seldinger technique, arterial access was obtained via the right radial artery, a 6 Fr sheath was inserted. Right Coronary Artery selective angiography was then performed in multiple v iews using a 5 Fr. 4.0 Holbrook catheter. Left Coronary Artery selective angiography was performed in mu ltiple views using a 5 Fr. 4.0 Holbrook catheter. Left Ventriculography was performed in ORTIZ projection using a 5 Fr. Pigtail catheter.The arterial sheath was pulled and a TR Band was applied for hemostasis CORONARY ANGIOGRAPHY DOMINANCE: Left Dominant LEFT HEART ASSESSMENT Left Ventricular Ejection Fraction: by LV Gram 65 % Normal LV wall motion Normal Left Ventricular systolic function Normal Left Ventricular systolic function LEFT MAIN: Angiographically normal LEFT ANTERIOR DESCENDING ARTERY: Angiographically normal CIRCUMFLEX ARTERY: Angiographically normal RIGHT CORONARY ARTERY: Angiographically normal COMPLICATIONS No Complications PROCEDURE MEDICATIONS Versed 1 mg IV Fentanyl 50 mcg IV Versed 1 mg IV Oxygen: 2 L/min via nasal cannula Baby Aspirin (81mg) 1 Tabs PO @ 07/09/2021 07:54:45 Heparin given IA 07/09/2021 09:16:39 Verapamil 2.5mg, Ntg 100mcgs, 3000 units of Heparin given IA 07/09/2021 09:16:39 SUMMARY OF HEMODYNAMIC DATA Time AIR REST ECG 07:51:57 Art 140/57 (86) 09:10:20 AO 123/68 (88) SA 09:18:36 LV 124/8, 16 09:26:38 LV 132/7, 17 09:26:45 LV 137/11, 20 09:27:13 LV 128/11, 18 09:27:20 LVp 122/10, 17 09:27:23 AOp 99/0 (68) 09:27:28 Signed By Jose L Valera MD On 07/09/2021 10:20:16 AM Jose L Valera MD
== END 2021-07-09 23:59 | disposition home or self-care (01) ==
LOC: CLSP 07:32
PROVIDERS: PCP Physician Assistant; Visit Provider Internal Medicine Cardiovascular Disease
DX: I25.110 Atherosclerotic heart disease of native coronary artery with unstable angina pectoris (principal); I48.91 Unspecified atrial fibrillation; I10 Essential (primary) hypertension; G47.33 Obstructive sleep apnea (adult) (pediatric); M19.90 Unspecified osteoarthritis, unspecified site; Z79.82 Long term (current) use of aspirin; Z79.899 Other long term (current) drug therapy; Z87.891 Personal history of nicotine dependence
CPT/HCPCS: 93458; 99152; 99153; J7040; C1769; C1894; Q9967

== ENCOUNTER → 2022-03-21 | Outpatient (CLI) | payer MEDICARE, BC, SELFPAY ==
[2022-03-23 20:19] LABS: Cancer Antigen 125 12.6 U/mL (0.0-38.1); Carbohydrate AG 19-9 8 U/mL (0-35); Carcinoembryonic Antigen 2.1 ng/mL (0.0-4.7)
== END | disposition home or self-care (01) ==
PROVIDERS: PCP Physician Assistant; Visit Provider Obstetrics & Gynecology
DX: R97.8 Other abnormal tumor markers (principal)
CPT/HCPCS: 36415; 82378; 86301; 86304

== ENCOUNTER → 2023-03-06 | Outpatient (CLI) | payer MEDICARE, BC, SELFPAY ==
--- NOTE | 2023-03-06 | VUL_PTH ---
PATIENT: GHANSHYAM NANCE LOC: [place] U#:[id number] AGE/SX: 67/F ROOM: RE03/06/[address]: Dr. Jenny Rouse MD : 1955 BED: DIS: 03/06/2023 SPEC #: [id number] RECD: 03/07/23 08:44 STATUS: SHAYY MENCHACA #: [id number] LAURENCE: 03/06/23 00:[address]: Jenny Rouse DEPT: SURGICAL PATHOLOGY RECD BY: Francesco Davidson ENTERED: 03/07/23 08:44 SP TYPE: VULVA BX OTHR DR: RAFITA Heaton [facility] Tissues: Vulva, NOS Procedures: Surgery Specimen Level IV HEADER OPERATION: Vulvar biopsy PRE-OP DIAGNOSIS: Atrophy of vulva TISSUE SUBMITTED: Vulvar biopsy MICROSCOPIC DIAGNOSIS Vulva, biopsy: Chronic inflammation and focal atrophic change. AM:laura 03/10/2023 MICROSCOPIC DESCRIPTION Slides are reviewed. GROSS DESCRIPTION Received in fixative is one container labeled with the patient's name and designated vulvar biopsy. The specimen consists of multiple irregular fragments of urias tissue ranging in size from 0.2 to 2.0 cm. The specimen is totally submitted in one cassette. / AM:laura 03/07/2023 TC:3 CPT: 96615
== END | disposition home or self-care (01) ==
LOC: LABSPEC 16:04
PROVIDERS: PCP Physician Assistant; Referring Provider Urology; Visit Provider Urology
DX: N90.5 Atrophy of vulva (principal)
CPT/HCPCS: 88305

== ENCOUNTER → 2024-08-05 | Outpatient (CLI) | payer MEDICARE, BC, SELFPAY ==
--- NOTE | 2024-08-05 10:41 | CT_ITS ---
EXAM: CT Abdomen and Pelvis With Intravenous Contrast CLINICAL INDICATION: LLQ PAIN TECHNIQUE: Axial computed tomography images of the abdomen and pelvis with intravenous contrast. This CT exam was performed using one or more of the following dose reduction techniques: automated exposure control, adjustment of the mA and/or kV according to patient size, and/or use of iterative reconstruction technique. COMPARISON: No relevant prior studies available. FINDINGS: LUNG BASES: Unremarkable. No mass. No consolidation. MEDIASTINUM: Small esophageal hiatal hernia. ABDOMEN: LIVER: Fatty infiltration of the liver. Hepatic cysts. GALLBLADDER AND BILE DUCTS: Unremarkable. No calcified stones. No ductal dilation. PANCREAS: Unremarkable. No mass. No ductal dilation. SPLEEN: Unremarkable. No splenomegaly. ADRENALS: Unremarkable. No mass. KIDNEYS AND URETERS: Bilateral renal cysts. No stones within either kidney. No hydronephrosis. STOMACH AND BOWEL: Colonic diverticulosis without acute diverticulitis. No obstruction. PELVIS: APPENDIX: No findings to suggest acute appendicitis. BLADDER: Unremarkable. No mass. REPRODUCTIVE: Unremarkable as visualized. ABDOMEN and PELVIS: INTRAPERITONEAL SPACE: Unremarkable. No free air. No significant fluid collection. BONES/JOINTS: No acute fracture. No dislocation. SOFT TISSUES: Umbilical hernia containing fat. VASCULATURE: Unremarkable. No abdominal aortic aneurysm. LYMPH NODES: Unremarkable. No enlarged lymph nodes. CT/Abdomen/Pelvis WITH Contrast IMPRESSION: 1. Small esophageal hiatal hernia. 2. Umbilical hernia containing fat. 3. No obstructive uropathy. 4. Colonic diverticulosis without acute diverticulitis. Reading [facility]
== END | disposition home or self-care (01) ==
LOC: CT 10:41
PROVIDERS: PCP Physician Assistant; Referring Provider Surgery; Visit Provider Surgery
DX: R10.32 Left lower quadrant pain (principal)
CPT/HCPCS: 74177; Q9967; A4216

== ENCOUNTER 2024-08-24 06:07 | Day surgery (SDC) | payer MEDICARE, BC, SELFPAY ==
--- NOTE | 2024-08-19 10:05 | PAT.ANE_ITS ---
Pre-Assessment Diagnosis/Proposed Procedure Planned Operative Procedure(s): COLONOSCOPY Anesthesia History Anesthesia History - brazing furnace feeder: Anesthesia History - brazing furnace feeder Hx Hospitalization No 08/19/24 08:31 Any Problems With Anesthesia Yes: SLOW TO AWAKEN WITH 08/19/24 08:31 GENERAL ANESTHESIA Cholinesterase deficiency No 08/19/24 08:31 You/Your Family Experience No 08/19/24 08:31 fever (hyperthermia) with Relationship Recent Exposure to Contagious No 06/22/21 06:46 Disease Does patient have nerve No 08/19/24 08:31 stimulator Patient instructed to have device shut off --Does patient have Pacemaker or ICD? When Was Last Pacemaker Check QUESTION #4 FULL TEXT: You/Your Family Experience fever (hyperthermia) with Anesthesia Last Oral Intake Last Oral intake: Last Oral Intake NPO since Meds taken in AM with sips of water? Meds patient instructed to take am of surgery PONV PONV - brazing furnace feeder: PONV - brazing furnace feeder Female Yes 08/19/24 08:31 HX of Motion Sickness Yes 08/19/24 08:31 HX of N/V After Surgery No 08/19/24 08:31 Non-Smoker Yes 08/19/24 08:31 Duration of Surgery greater No 08/19/24 08:31 than 60 minutes Number of Risk Factors 3 08/19/24 08:31 PONV Score Moderate Risk 08/19/24 08:31 Height & Weight Height & Weight: Anesthesia: Height & Weight Height 5 ft 6 in 08/13/24 08:12 Respiratory Assessment Respiratory Assessment - brazing furnace feeder: Respiratory Tract Infection Hx - brazing furnace feeder Hx Respiratory Tract Infection No 08/19/24 08:31 STOP Sleep Apnea STOP Sleep Apnea - brazing furnace feeder: STOP Sleep Apnea - brazing furnace feeder Hx Hypertension Yes: CONTROLLED WITH MED 08/19/24 08:31 Hx Sleep Apnea Yes 08/19/24 08:31 CPAP Yes: MILD AND PT CHOSE NOT 08/19/24 08:31 TO WEAR BIPAP No 08/19/24 08:31 Do you snore loudly (louder than talking or can be heard Do you often feel tired/ fatigued/ sleepy during daytime? Has anyone observed you stop breathing during sleep? STOP Results Positive 08/19/24 08:31 QUESTION #5 FULL TEXT : Do you snore loudly (louder than talking or can be heard through closed doors)? Tobacco Use History Tobacco Use History - brazing furnace feeder: Tobacco Use History - brazing furnace feeder Tobacco Use Smoking Status Former smoker 08/19/24 08:31 Hx Tobacco Use No 08/19/24 08:31 Years Smoking Packs Smoked per Day Smoking Cessation Date was No - quit smoking greater 08/19/24 08:31 within the last 15 years than 15 years ago Hx Smoking Cessation Date 03/31/79 08/19/24 08:31 Hx Smoking Cessation No 08/19/24 08:31 Counseling Hematologic Medial History Hematologic Hx - brazing furnace feeder: Hematologic Medical Hx - assurance specialist Hx of Blood Transfusion No 08/19/24 08:31 Hx of Transfusion in last 3 No 08/19/24 08:31 Months Date of Last Transfusion (if within last 3 months) Ever experience any problems No 08/19/24 08:31 with transfusion(s)? Specify any problems Hx of Preganancy in last 3 No 08/19/24 08:31 Months Nurse Filling Out Transfusion DSCHRIBER 08/19/24 08:31 & Questions: Date: 08/19/24 08/19/24 08:31 Time: 08:33 08/19/24 08:31 Patient unable to answer at this time (ie. confused, unrespo /Reproduction History /Reproductive History - brazing furnace feeder: /Reproductive Hx- brazing furnace feeder Hx Now No 08/19/24 08:31 Gestational Age (in weeks): EDC: Hx Hx Para Hx Section SAB No 08/19/24 08:31 PFSH Medical History (Updated 08/19/24 @ 08:41 by Elisa Lantigua) Loss of hearing Chipped tooth Dietary restriction Difficulty swallowing History of diverticulitis Heartburn Sleep apnea History of pain when walking History of edema Burping Constipation Tinnitus Wears glasses Arthritis Bladder disease Anemia Back pain Lightheadedness Hx of vertigo Former smoker Shortness of breath on exertion History of echocardiogram History of stress test Hypertension Cardiology follow-up encounter History of irregular heartbeat Atrial fibrillation with rapid ventricular response (07/06/20) Essential hypertension Anxiety Benign neoplasm of larynx Allergies GERD (gastroesophageal reflux disease) Bartholin cyst Home Medications ?Medication ?Instructions ?Recorded ?Last Taken ?Type multivitamin with minerals 1 ea PO DAILY 03/02/19 Unkn own History alprazolam 0.25 mg tablet 0.25 mg PO TID PRN Anxiety 0 09/20/20 Unknown History lisinopril 30 mg tablet 30 mg PO QHS 04/25/21 Unknow n History glucosamine 250 [id number] 200 1 tab PO DAILY Unknown History mg-D3 1,500 mlcj-W-gkffw-herbs tablet cetirizine 10 mg tablet 10 mg PO QDAY PRN allergy sy mptoms 08/05/24 Unknown History cholecalciferol (vitamin D3) 50 25 mcg PO DAILY Unknown History mcg (2,000 unit) tablet estradiol 0.01% (0.1 mg/gram) 1 appful vaginal 2XW 11/22 Unknown History vaginal cream fluticasone propionate 50 1 spray intranasal QDAY 11/22 Unknown History mcg/actuation nasal spray,suspension lactobacillus combination no.9 4 4,000 mmu cells PO QD AY 08/05/24 Unknown History billion cell capsule (Adult 50 Plus Probiotic) c-e2 0.05 % vaginal TUTH 08/19/24 Unknown History Allergy/AdvReac Type Severity Reaction Status Date / Time cyclobenzaprine Allergy Severe Other Verified 08/19/24 08:27 ranitidine Allergy Mild Other Verified 08/19/24 08:27 adhesive Allergy Rash Verified 08/19/24 08:27 Family History Mother Heart disease valvular heart disease Hypertension CAD (coronary artery disease) CVA (cerebral vascular accident) Grandmother Breast cancer Diabetes Father Heart disease Brother CAD (coronary artery disease), Onset Age: 64 CABG Heart disease Hypertension Sister Heart disease afib Brother Hypertension Grandfather CVA (cerebral vascular accident) Surgical History (Updated 08/19/24 @ 08:41 by Elisa Lantigua) History of cardiac catheterization History of esophagogastroduodenoscopy (EGD) (~05/2021) History of laryngoscopy History of colpocleisis History of cholecystectomy History of colonoscopy (02/2019) History of esophagogastroduodenoscopy (EGD) (02/2019) S/P wisdom tooth extraction Cyst of Bartholin's gland Social History Smoking Status: Former smoker how long ago did patient quit smokin alcohol intake: current alcohol intake frequency: a few times a week caffeine: Yes Type: coffee Number of servings: 2 Audit: Pertinent Findings Pertinent Findings EKG Perinent findings: 07/02/2021. Sinus rhythm within normal limits. Heart catheterization pertinent findings: 07/09/2021. Catheterization for suspected coronary artery disease. Conclusion normal coronary arteries. Normal size function Consult pertinent findings: Cardiology 07/02/2021. Hypertension. Chronic. Well- controlled. Palpitations on metoprolol. Will continue. Chest pain on exertion negative prior stress test. Negative cardiac workup. Consider heart catheterization to assure this is not ischemic. Pulmonary function results/spirometer pertinent findings: 07/05/2021. Chest x-ray no acute cardiopulmonary process. Recommendation Anesthesia Recommendation Anesthesia recommendation: OPTIMIZED for anesthesia
[2024-08-24] VITALS (8 sets, daily range): BP systolic 86–111; BP diastolic 58–72; PULSE 16–80; RESP 16; TEMP 36.2–36.7; O2SAT 95–97; BMI 32.3
--- NOTE | 2024-08-24 06:35 | PCM.HP.BLA ---
History and Physical Date of Admission: 08/24/24 Intake Vital Signs 08/05/2509:04 08/14/2507:12 Height 5 ft 6.6 in 5 ft 6 in Weight: 210 lb 2 oz 213 lb BMI 33.3 34.3 BP 123/79 H 134/81 H Blood Pressure Location Rt brachial Rt brachial Position Sitting Sitting Respiration 18 17 Pulse 74 69 Pulse Source Monitor Monitor Temp 97.5 F L 97.2 F L Temp Source Temporal Temporal Pulse Oximetry (%) 97 96 Oxygen Delivery Method room air room air Intake Visit Reasons: REVIEW CT SCAN Chief Complaint: review CT scan Is patient in pain?: Yes (LLQ) Allergies cyclobenzaprine Allergy (Severe, Verified 08/13/24 08:12) Otherranitidine Allergy (Mild, Verified 08/13/24 08:12) Otheradhesive Allergy (Verified 08/13/24 08:12) Rash Medications ?Medication ?Instructions ?Recorded ?Confirmed ?Type multivitamin with minerals 1 ea PO DAILY 03/02/19 08/13/24 History alprazolam 0.25 mg tablet 0.25 mg PO TID PRN Anxiety 09/20/20 08/13/24 History lisinopril 30 mg tablet 30 mg PO QHS 04/25/21 08/13/24 History glucosamine 250 it-wfwdp-ffs 200 1 tab PO DAILY 06/18/21 08/13/24 History mg-D3 1,500 lyyr-E-gphzd-herbs tablet cetirizine 10 mg tablet 10 mg PO QDAY PRN 08/05/24 08/13/24 History cholecalciferol (vitamin D3) 50 25 mcg PO DAILY 08/05/24 08/13/24 History mcg (2,000 unit) tablet estradiol 0.01% (0.1 mg/gram) 1 appful vaginal 2XW 08/05/24 08/13/24 History vaginal cream fluticasone propionate 50 1 spray intranasal QDAY 08/05/24 08/13/24 History mcg/actuation nasal spray,suspension lactobacillus combination no.9 4 4,000 mmu cells PO QDAY 08/05/24 08/13/24 History billion cell capsule (Adult 50 Plus Probiotic) Have you fallen in the past year?: No PFSH Medical History Abdominal pain Burping Constipation Tinnitus Wears glasses Arthritis Bladder disease Anemia Back pain Lightheadedness Hx of vertigo Difficulty chewing Former smoker Shortness of breath on exertion History of echocardiogram History of stress test Hypertension Cardiology follow-up encounter History of irregular heartbeat Chest pain Atrial fibrillation with rapid ventricular response (07/06/20) Essential hypertension Anxiety ROSA (obstructive sleep apnea) Osteopenia IBS (irritable bowel syndrome) Benign neoplasm of larynx Allergies GERD (gastroesophageal reflux disease) Bartholin cyst Surgical History History of left heart catheterization (07/09/21) History of esophagogastroduodenoscopy (EGD) (~05/2021) History of laryngoscopy History of colpocleisis History of cholecystectomy History of colonoscopy (02/2019) History of esophagogastroduodenoscopy (EGD) (02/2019) S/P wisdom tooth extraction Cyst of Bartholin's gland Family History Mother Heart disease valvular heart disease Hypertension CAD (coronary artery disease) CVA (cerebral vascular accident)Grandmother Breast cancer DiabetesFather Heart diseaseBrother CAD (coronary artery disease), Onset Age: 64 CABG Heart disease HypertensionSister Heart disease afibBrother HypertensionGrandfather CVA (cerebral vascular accident) Social History Smoking Status: Former smoker how long ago did patient quit smokin alcohol intake: current alcohol intake frequency: a few times a week caffeine: Yes Type: coffee Number of servings: 2 HPI HPI HPI: Patient is a 68-year-old female following up after CT scan. The patient was recently told that she had diverticulitis and she has been on several rounds of antibiotics. I did not notice any stranding on the outside read CAT scan. I decided to order a CT scan here while she was having active symptoms. She is still having active symptoms and she reports that she has not had a solid stool in at least a week and she is only passing liquid. She is still having left lower quadrant pain. ROS General General: Yes weight change; No appetite, fatigue, colon cancer, breast cancer or weakness Additional Details: Fifteen pound weight loss since March HEENT HEENT: No difficulty swallowing, eye injury, eye surgery, swollen glands or hoarseness Endo Endocrine: No thyroid disease, diabetes mellitus, thyroid cancer, Hair loss, heat intolerance or cold intolerance Skin Skin: No rash or changing moles Breast Breast: No left breast lump, right breast lump, nipple discharge, breast pain, abnormal mammogram, abnormal US or breast enlargement Musc Musculoskeletal: Yes back problems and arthritis; No rheumatoid arthritis, gout or joint pain Cardio Cardiovascular: No murmur, pacemaker, heart disease, atrial fibrillation, high blood pressure, heart attack, heart stent, palpitations, shortness of breath with exertion or chest pain Additional Details: PAC's Psych Psychiatric: Yes anxiety; No depression or hearing voices Resp Respiratory: No shortness of breath, Yes sleep apnea, No cough, No COPD, No asthma, No emphysema and No wheezing Gastro Gastrointestinal: Yes abdominal pain, Yes nausea or vomiting, Yes diarrhea, No constipation, No blood in stool, No acid reflux, Yes hemorrhoids, No ulcers, No gallbladder problem and No black,tarry stools Fernando Hematologic: No blood thinners, No blood disorders, No bleeding, No anemia and No blood clots Neuro Neurologic: No system reviewed and no additional complaints, except as documented, No as per HPI, No abnormal gait, No abnormal hearing, No abnormal movements, No abnormal speech, No behavioral changes, No burning sensations, No confusion, No convulsions, No disequilibrium, No dizziness, No localized weakness, No frequent falls, No headache(s), No lack of coordination, No loss of vision, No memory loss, No numbness, No other visual disturbances, No radicular pain, No restless legs, No sensory deficit, No syncope, No tingling, No tremor(s), No weakness and No other Exam Const General: cooperative Orientation: alert and oriented x3 HENMT Head: normal to inspection Neck Neck: normal visual inspection and full ROM Chest Chest palpation & inspection: normal inspection of the chest Resp Effort & Inspection: normal respiratory effort Auscultation: clear to auscultation bilaterally Cardio Rate: regular rate Rhythm: regular rhythm GI Inspection: non-distended Palpation: soft and nontender Skin General: no rashes or lesions noted Neuro General: patient alert and patient oriented x3 Extrem General: full ROM Psych Appearance: grossly normal Mental Status: mental status grossly normal Assessment and Plan Assessment and Plan (1) Left lower quadrant pain: Status: Acute Plan: Patient reports she is still having the left lower quadrant pain that is causing nausea as well. She also reports that she is already having liquid stools and no solid stools. I repeated a CT scan while she was having active symptoms and there is no stranding to suggest diverticulitis. She does have diverticulosis of the sigmoid colon but there is no inflammation. I do not believe that her symptoms are being caused by diverticulitis. I would like to perform a colonoscopy to evaluate the colon. Her last colonoscopy was in 2019. She is getting an ultrasound of her left ovary as there is a cystic structure as well. I explained endoscopy in detail to the patient. I explained the risks including but not limited to stroke or heart attack with anesthesia, perforation of the GI tract, bleeding, infection. I explained that any of these could necessitate further emergency surgery. The patient understands and all questions were answered sufficiently. The patient wishes to proceed with procedure. Naeem Mattson MD Pager: [facility] [address] [place] [address] [address] [place] [address] Office: I have seen and examined the patient and reviewed the H&P. There are no clinical changes
[2024-08-24] MEDS: Lactated Ringers 1,000 ML 15 ML IV (07:00)
--- NOTE | 2024-08-24 07:29 | PCM.PRE.AN2 ---
ASA Classification* ASA Classification ASA Classification: 2 Assessment & Plan Anesthesia* Anesthesia Assessment Anesthesia Assessment: Discussed sedation and/or anesthesia options, risks, benefits, and alternatives with patient/parents/legal guardian/POA. Questions invited. The patient/parents/legal guardian/POA seems to understand and agrees to proceed with anesthesia plan. Reviewed the physical assessment, medical history, allergy history and patient home medications list prior to surgery/procedure/anesthetic and documented any changes. Performed airway and anesthesia risk assessments. Anesthesia Type Anesthesia Type: MAC History Source History Obtained from:: Patient and Chart Anesthesia Focused Assessment* Temperature: 98.1 F Pulse Rate: 80 Blood Pressure: 111/72 Respiratory Rate: 16 Pulse Ox: 97 Oxygen Delivery Method: Room Air Airway Assessment Mouth opens: >3 cm Mallampati Score: I Teeth Condition: Intact Neck Range of motion (ROM): Full ROM Focused Labs Anesthesia Preop lab: CBC WBC 6.5 K/mm3 (4.4-11.0) 07/05/21 10:49 07/05/21 RBC 4.88 M/mm3 (4.2-5.4) 07/05/21 10:49 07/05/21 Hgb 15.0 g/dL (12.0-15.0) 07/05/21 10:49 07/05/21 Hct 44.3 % (37-47) 07/05/21 10:49 07/05/21 Plt Count 249 K/mm3 (150-450) 07/05/21 10:49 07/05/21 CHEMISTRY Potassium 3.9 mmol/L (3.5-5.1) 07/05/21 10:49 07/05/21 Sodium 140 mmol/L (136-145) 07/05/21 10:49 07/05/21 BUN 8 mg/dL (7-18) 07/05/21 10:49 07/05/21 Creatinine 0.78 mg/dL (0.55-1.02) 07/05/21 10:49 07/05/21 Glucose 86 mg/dL (74-106) 07/05/21 10:49 07/05/21 COAG PT 13.2 SECONDS (11.7-14.9) 07/05/21 10:49 07/05/21 Pre-Assessment Diagnosis/Proposed Procedure Planned Operative Procedure(s): COLONOSCOPY Anesthesia History Anesthesia History - operations team leader: Anesthesia History - operations team leader Hx Hospitalization No 08/19/24 08:31 Any Problems With Anesthesia Yes: SLOW TO AWAKEN WITH 08/19/24 08:31 GENERAL ANESTHESIA Cholinesterase deficiency No 08/19/24 08:31 You/Your Family Experience No 08/19/24 08:31 fever (hyperthermia) with Relationship Recent Exposure to Contagious No 08/24/24 06:54 Disease Does patient have nerve No 08/19/24 08:31 stimulator Patient instructed to have device shut off --Does patient have Pacemaker No 08/24/24 06:54 or ICD? When Was Last Pacemaker Check QUESTION #4 FULL TEXT: You/Your Family Experience fever (hyperthermia) with Anesthesia Last Oral Intake Last Oral intake: Last Oral Intake NPO since 03:30 08/24/24 06:54 Meds taken in AM with sips of No 08/24/24 06:54 water? Meds patient instructed to take am of surgery PONV PONV - operations team leader: PONV - operations team leader Female Yes 08/19/24 08:31 HX of Motion Sickness Yes 08/19/24 08:31 HX of N/V After Surgery No 08/19/24 08:31 Non-Smoker Yes 08/19/24 08:31 Duration of Surgery greater No 08/19/24 08:31 than 60 minutes Number of Risk Factors 3 08/19/24 08:31 PONV Score Moderate Risk 08/19/24 08:31 Height & Weight Height & Weight: Anesthesia: Height & Weight Height 5 ft 7 in 08/24/24 06:54 Weight: 93.7 kg 08/24/24 06:54 Body Mass Index (BMI) 32.3 08/24/24 06:54 Respiratory Assessment Respiratory Assessment - operations team leader: Respiratory Tract Infection Hx - operations team leader Hx Respiratory Tract Infection No 08/19/24 08:31 STOP Sleep Apnea STOP Sleep Apnea - operations team leader: STOP Sleep Apnea - operations team leader Hx Hypertension Yes: CONTROLLED WITH MED 08/19/24 08:31 Hx Sleep Apnea Yes 08/19/24 08:31 CPAP Yes: MILD AND PT CHOSE NOT 08/19/24 08:31 TO WEAR BIPAP No 08/19/24 08:31 Do you snore loudly (louder than talking or can be heard Do you often feel tired/ fatigued/ sleepy during daytime? Has anyone observed you stop breathing during sleep? STOP Results Positive 08/19/24 08:31 QUESTION #5 FULL TEXT : Do you snore loudly (louder than talking or can be heard through closed doors)? Tobacco Use History Tobacco Use History - operations team leader: Tobacco Use History - operations team leader Tobacco Use Smoking Status Former smoker 08/19/24 08:31 Hx Tobacco Use No 08/19/24 08:31 Years Smoking Packs Smoked per Day Smoking Cessation Date was No - quit smoking greater 08/19/24 08:31 within the last 15 years than 15 years ago Hx Smoking Cessation Date 03/31/79 08/19/24 08:31 Hx Smoking Cessation No 08/19/24 08:31 Counseling Hematologic Medial History Hematologic Hx - operations team leader: Hematologic Medical Hx - train engineer Hx of Blood Transfusion No 08/19/24 08:31 Hx of Transfusion in last 3 No 08/19/24 08:31 Months Date of Last Transfusion (if within last 3 months) Ever experience any problems No 08/19/24 08:31 with transfusion(s)? Specify any problems Hx of Preganancy in last 3 No 08/19/24 08:31 Months Nurse Filling Out Transfusion DSCHRIBER 08/19/24 08:31 & Questions: Date: 08/19/24 08/19/24 08:31 Time: 08:33 08/19/24 08:31 Patient unable to answer at this time (ie. confused, unrespo /Reproduction History /Reproductive History - operations team leader: /Reproductive Hx- operations team leader Hx Now No 08/19/24 08:31 Gestational Age (in weeks): EDC: Hx Hx Para Hx Section SAB No 08/19/24 08:31 Active Medications Active Medications: Current Medications Generic Name Dose Route Start Last Admin Trade Name Freq PRN Reason Stop Dose Admin Lactated Ringer's 1,000 mls @ 15 mls/hr 08/24/24 06:45 08/24/24 07:00 IV 15 mls/hr .Q48H ADEEL Administration PFSH Medical History (Updated 08/19/24 @ 08:41 by Elisa Lantigua) Loss of hearing Chipped tooth Dietary restriction Difficulty swallowing History of diverticulitis Heartburn Sleep apnea History of pain when walking History of edema Burping Constipation Tinnitus Wears glasses Arthritis Bladder disease Anemia Back pain Lightheadedness Hx of vertigo Former smoker Shortness of breath on exertion History of echocardiogram History of stress test Hypertension Cardiology follow-up encounter History of irregular heartbeat Atrial fibrillation with rapid ventricular response (07/06/20) Essential hypertension Anxiety Benign neoplasm of larynx Allergies GERD (gastroesophageal reflux disease) Bartholin cyst Home Medications ?Medication ?Instructions ?Recorded ?Last Taken ?Type multivitamin with minerals 1 ea PO DAILY 03/02/19 Unknown History alprazolam 0.25 mg tablet 0.25 mg PO TID PRN Anxiety 09/20/20 Unknown History lisinopril 30 mg tablet 30 mg PO QHS 04/25/21 Unknown History glucosamine 250 [id number]-hia 200 1 tab PO DAILY 06/18/21 Unknown History mg-D3 1,500 lymq-M-ilgmf-herbs tablet cetirizine 10 mg tablet 10 mg PO QDAY PRN allergy symptoms 08/05/24 Unknown History cholecalciferol (vitamin D3) 50 25 mcg PO DAILY 08/05/24 Unknown History mcg (2,000 unit) tablet estradiol 0.01% (0.1 mg/gram) 1 appful vaginal 2XW 08/05/24 Unknown History vaginal cream fluticasone propionate 50 1 spray intranasal QDAY 08/05/24 Unknown History mcg/actuation nasal spray,suspension lactobacillus combination no.9 4 4,000 mmu cells PO QDAY 08/05/24 Unknown History billion cell capsule (Adult 50 Plus Probiotic) c-e2 0.05 % vaginal TUTH 08/19/24 Unknown History Allergy/AdvReac Type Severity Reaction Status Date / Time cyclobenzaprine Allergy Severe Other Verified 08/19/24 08:27 ranitidine Allergy Mild Other Verified 08/19/24 08:27 adhesive Allergy Rash Verified 08/19/24 08:27 Family History Mother Heart disease valvular heart disease Hypertension CAD (coronary artery disease) CVA (cerebral vascular accident) Grandmother Breast cancer Diabetes Father Heart disease Brother CAD (coronary artery disease), Onset Age: 64 CABG Heart disease Hypertension Sister Heart disease afib Brother Hypertension Grandfather CVA (cerebral vascular accident) Surgical History (Updated 08/19/24 @ 08:41 by Elisa Lantigua) History of cardiac catheterization History of esophagogastroduodenoscopy (EGD) (~05/2021) History of laryngoscopy History of colpocleisis History of cholecystectomy History of colonoscopy (02/2019) History of esophagogastroduodenoscopy (EGD) (02/2019) S/P wisdom tooth extraction Cyst of Bartholin's gland Social History Smoking Status: Former smoker how long ago did patient quit smokin alcohol intake: current alcohol intake frequency: a few times a week caffeine: Yes Type: coffee Number of servings: 2 Review of Systems (Anesthesia) ROS Narrative System reviewed and no additional complaints, except as documented.
--- NOTE | 2024-08-24 08:02 | OP.COLON_ITS ---
Patient Name: Marylou Santos Procedure Date: 08/24/2024 7:36 AM Date of : 1955 Age: 68 Procedure: Colonoscopy Indications: Abdominal pain in the left lower quadrant Providers: Naeem Mattson MD Referring MD: Karina Moncada Medicines: Propofol per Anesthesia Patient Profile: This is a 68 year old female. Refer to note in patient chart for documentation of history and physical. Last Colonoscopy: 5 years ago. Complications: No immediate complications. Procedure: Pre-Anesthesia Assessment: - Prior to the procedure, a History and Physical was performed, and patient medications and allergies were reviewed. The patient's tolerance of previous anesthesia was also reviewed. The risks and benefits of the procedure and the sedation options and risks were discussed with the patient. All questions were answered, and informed consent was obtained. Prior Anticoagulants: The patient has taken no anticoagulant or antiplatelet agents. After reviewing the risks and benefits, the patient was deemed in satisfactory condition to undergo the procedure. After I obtained informed consent, the scope was passed under direct vision. Throughout the procedure, the patient's blood pressure, pulse, and oxygen saturations were monitored continuously. The colonoscope was introduced through the anus and advanced to the terminal ileum, with identification of the appendiceal orifice and IC valve. The colonoscopy was performed without difficulty. The patient tolerated the procedure well. The quality of the bowel preparation was good. The ileocecal valve, appendiceal orifice, and rectum were photographed. Scope In: 7:47:05 AM Scope Withdrawal Time 0 hours 7 minutes 7 seconds Scope Out: 7:56:59 AM Total Procedure Duration Time 0 hours 9 minutes 54 seconds Findings: The entire examined colon appeared normal on direct and retroflexion views. Impression: - The entire examined colon is normal on direct and retroflexion views. - No specimens collected. Recommendation: - Discharge patient to home. - Resume previous diet. - Continue present medications. - Repeat colonoscopy is not recommended due to current age (66 years or older) for screening purposes. Procedure Code(s): --- Professional --- 55310, Colonoscopy, flexible; diagnostic, including collection of specimen(s) by brushing or washing, when performed (separate procedure) Diagnosis Code(s): --- Professional --- R10.32, Left lower quadrant pain CPT copyright 2021 [employer]. All rights reserved. The codes documented in this report are preliminary and upon cancellation clerk review may be revised to meet current compliance requirements. Naeem Mattson MD 08/24/2024 8:02:25 AM This report has been signed electronically. Number of Addenda: 0 Note Initiated On: 08/24/2024 7:36 AM
--- NOTE | 2024-08-24 08:03 | OP.CCLET_ITS ---
08/24/2024 Karina Moncada Re : Colonoscopy procedure for Marylou Rasmussenr Moncada This procedure was performed on Saturday, August 24, 2024. My impressions and recommendations are as follows: Impressions : - The entire examined colon is normal on direct and retroflexion views. - No specimens collected. Recommendations : - Discharge patient to home. - Resume previous diet. - Continue present medications. - Repeat colonoscopy is not recommended due to current age (66 years or older) for screening purposes. My findings are described in the full procedure note, which is enclosed. If I can be of further assistance, please feel free to contact me at Doctor phone number(s): , Work: . Sincerely, Naeem Mattson MD 08/24/2024 8:02:25 AM This report has been signed electronically.
--- NOTE | 2024-08-24 08:06 | PCM.POST.ANE ---
Anesthesia: Postop Eval I Current Vital Signs Temperature: 97.2 F Pulse Rate: 16 Blood Pressure: 96/58 Respiratory Rate: 16 Pulse Ox: 96 Oxygen Delivery Method: Room Air Assessment Airway patent: Yes Spontaneous unlabored respirations: Yes Mental status: Awake and Calm nausea: No Vomiting: No Anesthesia Complication: No Fluid Hydration Crystalloid volume administer (ml): 400 Total IV fluid infused: 400 Progress Note Anesthesia document: Postop Eval 1 completed: Yes
--- NOTE | 2024-08-24 13:59 | PCM.POSTANE2 ---
Anesthesia Postop Eval I Sum Postop Eval Completion status Anesthesia document: Postop Eval 1 completed: Yes Anesthesia Postop Eval I Summary Anesthesia Postop Eval I Summary: Anesthesia Postop Eval I: Assessment Summary Airway patent Yes 08/24/24 08:07 [email or web address] Spontaneous unlabored Yes 08/24/24 08:07 [email or web address] respirations Mental status Awake,Calm 08/24/24 08:07 [email or web address] nausea No 08/24/24 08:07 [email or web address] Vomiting No 08/24/24 08:07 [email or web address] Anesthesia Postop Eval I: Fluid Summary Crystalloid volume administer 400 08/24/24 08:07 [email or web address] (ml) Colloids volume administered ( ml) Blood Product volume administered (ml) Total IV fluid infused 400 08/24/24 08:07 [email or web address] Anesthesia Postop Eval I: Summary Notes Anesthesia Complication No 08/24/24 08:07 [email or web address] Anesthesia Complication Comment: Post-operative progress note Anesthesia: Postop Eval II Evaluation Mental status: Awake and Calm Pain Level: 0 nausea: No Vomiting: No Complications Anesthesia Complication: No
== END 2024-08-24 08:45 | disposition home or self-care (01) ==
LOC: EN 06:08 → AC 06:10
PROVIDERS: PCP Physician Assistant; Referring Provider Physician Assistant; Visit Provider Surgery
PROC: 0DJD8ZZ Inspection of Lower Intestinal Tract, Via Natural or Artificial Opening Endoscopic (ICD-10-PCS; CPT 45378; principal; 2024-08-24 07:25)
DX: R10.32 Left lower quadrant pain (principal); I10 Essential (primary) hypertension; Z87.891 Personal history of nicotine dependence; Z79.899 Other long term (current) drug therapy; K21.9 Gastro-esophageal reflux disease without esophagitis
CPT/HCPCS: 45378; J2405

== ENCOUNTER 2024-12-03 13:30 | Outpatient (CLI) | payer MEDICARE, BC, SELFPAY ==
--- NOTE | 2024-11-23 16:24 | PAT.ANESEVAL ---
Pre-Assessment Diagnosis/Proposed Procedure Planned Operative Procedure(s): HYSTEROSCOPY DILATION AND CURRETAGE Anesthesia History Anesthesia History - patent legal assistant: Anesthesia History - patent legal assistant Hx Hospitalization No 11/23/24 11:19 Any Problems With Anesthesia No 11/23/24 11:19 Cholinesterase deficiency No 11/23/24 11:19 You/Your Family Experience No 11/23/24 11:19 fever (hyperthermia) with Relationship Recent Exposure to Contagious No 08/24/24 06:54 Disease Does patient have nerve No 11/23/24 11:19 stimulator Patient instructed to have device shut off --Does patient have Pacemaker or ICD? When Was Last Pacemaker Check QUESTION #4 FULL TEXT: You/Your Family Experience fever (hyperthermia) with Anesthesia Last Oral Intake Last Oral intake: Last Oral Intake NPO since Meds taken in AM with sips of water? Meds patient instructed to take am of surgery PONV PONV - patent legal assistant: PONV - patent legal assistant Female Yes 11/23/24 11:19 HX of Motion Sickness Yes 11/23/24 11:19 HX of N/V After Surgery No 11/23/24 11:19 Non-Smoker Yes 11/23/24 11:19 Duration of Surgery greater No 11/23/24 11:19 than 60 minutes Number of Risk Factors 3 11/23/24 11:19 PONV Score Moderate Risk 11/23/24 11:19 Height & Weight Height & Weight: Anesthesia: Height & Weight Height 5 ft 7 in 08/24/24 06:54 Respiratory Assessment Respiratory Assessment - patent legal assistant: Respiratory Tract Infection Hx - patent legal assistant Hx Respiratory Tract Infection No 11/23/24 11:19 STOP Sleep Apnea STOP Sleep Apnea - patent legal assistant: STOP Sleep Apnea - patent legal assistant Hx Hypertension Yes 11/23/24 11:19 Hx Sleep Apnea Yes: MILD 11/23/24 11:19 CPAP No 11/23/24 11:19 BIPAP No 11/23/24 11:19 Do you snore loudly (louder than talking or can be heard Do you often feel tired/ fatigued/ sleepy during daytime? Has anyone observed you stop breathing during sleep? STOP Results Positive 11/23/24 11:19 QUESTION #5 FULL TEXT : Do you snore loudly (louder than talking or can be heard through closed doors)? Tobacco Use History Tobacco Use History - patent legal assistant: Tobacco Use History - patent legal assistant Tobacco Use Smoking Status Former smoker 11/23/24 11:19 Hx Tobacco Use No 11/23/24 11:19 Years Smoking Packs Smoked per Day Smoking Cessation Date was No - quit smoking greater 11/23/24 11:19 within the last 15 years than 15 years ago Hx Smoking Cessation Date 03/31/79 11/23/24 11:19 Hx Smoking Cessation No 11/23/24 11:19 Counseling Hematologic Medial History Hematologic Hx - patent legal assistant: Hematologic Medical Hx - developer advocate Hx of Blood Transfusion No 11/23/24 11:19 Hx of Transfusion in last 3 No 11/23/24 11:19 Months Date of Last Transfusion (if within last 3 months) Ever experience any problems No 11/23/24 11:19 with transfusion(s)? Specify any problems Hx of Preganancy in last 3 No 11/23/24 11:19 Months Nurse Filling Out Transfusion [email or web address] 11/23/24 11:19 & Questions: Date: 11/23/24 11/23/24 11:19 Time: 11:24 11/23/24 11:19 Patient unable to answer at this time (ie. confused, unrespo /Reproduction History /Reproductive History - patent legal assistant: /Reproductive Hx- patent legal assistant Hx Now No 11/23/24 11:19 Gestational Age (in weeks): EDC: Hx Hx Para Hx Section SAB No 11/23/24 11:19 [facility] Medical History (Updated 11/23/24 @ 11:27 by [address]) Lyme disease Loss of hearing Chipped tooth Dietary restriction Difficulty swallowing History of diverticulitis Heartburn Sleep apnea History of pain when walking History of edema Burping Constipation Tinnitus Wears glasses Arthritis Bladder disease Anemia Back pain Lightheadedness Hx of vertigo Former smoker Shortness of breath on exertion History of echocardiogram History of stress test Hypertension Cardiology follow-up encounter History of irregular heartbeat Atrial fibrillation with rapid ventricular response (07/06/20) Essential hypertension Anxiety Benign neoplasm of larynx Allergies GERD (gastroesophageal reflux disease) Bartholin cyst Home Medications ?Medication ?Instructions ?Recorded ?Last Taken ?Type multivitamin with minerals 1 ea PO DAILY 03/02/19 Unknown History alprazolam 0.25 mg tablet 0.25 mg PO TID PRN Anxiety 09/20/20 Unknown History lisinopril 30 mg tablet 30 mg PO QHS 04/25/21 Unknown History glucosamine 250 va-wxpwh-ypu 200 1 tab PO DAILY 06/18/21 Unknown History mg-D3 1,500 pjdf-Z-qwkzo-herbs tablet cetirizine 10 mg tablet 10 mg PO QDAY allergy symptoms 08/05/24 Unknown History cholecalciferol (vitamin D3) 50 25 mcg PO DAILY 08/05/24 Unknown History mcg (2,000 unit) tablet estradiol 0.01% (0.1 mg/gram) 1 appful vaginal 2XW 08/05/24 Unknown History vaginal cream Held on 11/23/24. Instructions: HOLDING FOR SURGERY 11/2024 fluticasone propionate 50 1 spray intranasal QDAY 08/05/24 Unknown History mcg/actuation nasal spray,suspension lactobacillus combination no.9 4 4,000 mmu cells PO QDAY 08/05/24 Unknown History billion cell capsule (Adult 50 Plus Probiotic) c-e2 0.05 % vaginal TUTH 08/19/24 Unknown History Held on 11/23/24. Instructions: HOLDING BEFORE SURGERY 11/2024 Allergy/AdvReac Type Severity Reaction Status Date / Time cyclobenzaprine Allergy Severe Other Verified 11/23/24 11:14 ranitidine Allergy Mild Other Verified 11/23/24 11:14 adhesive Allergy Rash Verified 11/23/24 11:14 doxycycline AdvReac HEADACHES Verified 11/23/24 11:16 sulfamethoxazole (From AdvReac UNKNOWN Verified 11/23/24 11:16 Bactrim) trimethoprim (From Bactrim) AdvReac UNKNOWN Verified 11/23/24 11:16 Family History Mother Heart disease valvular heart disease Hypertension CAD (coronary artery disease) CVA (cerebral vascular accident) Grandmother Breast cancer Diabetes Father Heart disease Brother CAD (coronary artery disease), Onset Age: 64 CABG Heart disease Hypertension Sister Heart disease afib Brother Hypertension Grandfather CVA (cerebral vascular accident) Surgical History History of cardiac catheterization History of esophagogastroduodenoscopy (EGD) (~05/2021) History of laryngoscopy History of colpocleisis History of cholecystectomy History of colonoscopy (02/2019) History of esophagogastroduodenoscopy (EGD) (02/2019) S/P wisdom tooth extraction Cyst of Bartholin's gland Social History Smoking Status: Former smoker how long ago did patient quit smokin alcohol intake: current alcohol intake frequency: a few times a week caffeine: Yes Type: coffee Number of servings: 2 Audit: Pertinent Findings Pertinent Findings EKG Perinent findings: 07/02/2021. Sinus rhythm within normal limits. Stress test pertinent findings: 2019. Pharmacologic nuclear stress test demonstrated no evidence of ischemia. Echo (EF%) pertinent findings: 2020. LVEF 50 to 65% with no wall motion abnormality. RVSP is 28 mmHg. Heart catheterization pertinent findings: 07/09/2021. Normal coronary arteries. Normal LV size wall motion and systolic function. Consult pertinent findings: 07/02/2021. Mariaelena OROZCO. 1. Hypertension?well-controlled. No changes at this time. 2. Palpitations-improved with metoprolol, will continue. Continue aspirin. 3. Chest pain on exertion-with all previous testing being negative, and continued chest pain we will proceed to diagnostic heart cath. (See above) Additional pertinent findings: 30-day Holter monitor. 2020. Less than 1% PAC burden. No significant arrhythmia found. Recommendation Anesthesia Recommendation Anesthesia recommendation: OPTIMIZED for anesthesia
[2024-11-23 16:36] LABS: Hematocrit 43.0 % (37-47); Hemoglobin 14.7 g/dL (12.0-15.0); Mean Corp Hgb Conc 34.2 g/dL (32-36); Mean Corpuscular Volume 91.7 fL (81-99); Mean Platelet Vol. 9.7 fl (6.2-12.0); Platelet Count 219 K/mm3 (150-450); RBC Distribution Width CV 13.6 % (11.6-14.6); RBC Distribution Width SD 45.9 fl (35.1-43.9); Red Blood Count 4.69 M/mm3 (4.2-5.4); White Blood Count 7.6 K/mm3 (4.4-11.0)
[2024-11-23 18:07] LABS: AST(SGOT) 24 U/L (<=31); Alanine Aminotransfer ALT/SGPT 22 U/L (<=34); Albumin, Serum 4.0 g/dL (3.4-4.8); Alkaline Phosphatase 77 U/L (35-104); Anion Gap 12 (5-15); BUN 12 mg/dL (4-19); BUN/Creat Ratio 15.4 RATIO (10-20); Calcium,Total 9.1 mg/dL (7.6-11.0); Carbon Dioxide 23.9 mmol/L (21.0-32.0); Chloride 105 mmol/L (98-108); Globulin 2.5 g/dL (2.2-4.2); Glucose 91 mg/dL (70-99); Potassium 4.2 mmol/L (3.3-5.1)
== END 2024-12-03 19:00 | disposition home or self-care (01) ==
LOC: SDC 02-09 12:47
PROVIDERS: PCP Physician Assistant; Referring Provider Obstetrics & Gynecology; Visit Provider Obstetrics & Gynecology
DX: Z01.818 Encounter for other preprocedural examination (principal)
CPT/HCPCS: 36415; 80053; 85027; 86850; 86900; 86901